=== PATIENT | female | born 1945 | race African-American/Black ===

== ENCOUNTER 2019-02-26 02:24 | Emergency (ER) | payer MEDICARE, SELFPAY ==
[2019-02-26 02:24] VITALS: BP 195/94; PULSE 92; RESP 16; TEMP 36.9; O2SAT 96; BMI 32.9
--- NOTE | 2019-02-26 02:34 | ED.VIS.GI ---
History of Present Illness Chief Complaint: Nausea/Vomiting/Diarrhea Narrative: She stated her last 72 hours she had nausea vomiting and diarrhea. Her stools have started to harden up today. She had multiple episodes of emesis in this time period. She had 3 episodes of emesis today and 3 or 4 yesterday and multiple on Monday. No home treatment. She is able to fluids. This all started after breakfast out at a restaurant. She is unsure if she got food poisoning. She is never had this before. She has diffuse abdominal cramping. Worse on the right side. Her gallbladder has been removed remotely. No fevers or chills. No back pain. No urinary symptoms. Current severity is moderate. - Past Medical History (1) Left leg numbness Status: Acute (2) Hypertension Status: Chronic (3) Hypothyroidism Status: Chronic Past Medical History - Allergies and Home Meds Allergies/Adverse Reactions: Allergies lisinopril Allergy (Verified 02/26/19 02:26) Angioedema Penicillins Allergy (Verified 02/26/19 02:26) Anaphylaxis Primary Care Physician: Elise Birch MD [Primary Care Provider] - Prior records reviewed: Yes Surgical History: - - Partial hysterectomy, thyroidectomy, cholecystectomy Lives: With Family Smoking Status: Current every day smoker Alcohol: None Drugs: None - Family History Paternal Family History: Reports: - - father when she was young Maternal Family History: Reports: - - mother still living at age 90 Review of Systems General: Denies: Chills, Fever, Sweats Eyes: Denies: Visual changes - bilaterally, Diplopia ENT: Denies: Rhinorrhea, Sore throat Cardiovascular: Denies: Chest pain, Palpitations Respiratory: Reports: -. Denies: Dyspnea, Cough, Dyspnea on exertion Gastrointestinal: Reports: Abdominal pain, Nausea, Vomiting, Diarrhea. Denies: Melena, Hematochezia Genitourinary: Denies: Dysuria, Hematuria, Frequency Musculoskeletal: Denies: Back pain, Extremity Pain Skin: Denies: Rash, Wounds Neurological: Denies: Headache, Weakness, Numbness Physical Exam Vital Signs/Narrative: Vital Signs Temp Pulse Resp BP Pulse Ox 02/26/19 02:24 98.5 F 92 16 195/94 H 96 General: Well nourished, Well developed, No Acute Distress Head: Normocephalic, Atraumatic Eyes: Perrl, EOMI ENT: Moist mucous membranes, No rhinorrhea Neck: Supple, Nontender Cardiovascular: Regular rate, Regular rhythm, No murmurs Respiratory: No distress, CTA bilaterally, Chest nontender Abdomen: Soft, Nondistended, Normal bowel sounds, Tender - Mild diffuse tenderness Back: Nontender, Normal Inspection Extremities: Nontender, No edema Skin: Normal color, No rash Neurological: Alert, Oriented x3, Cranial nerves II-XII grossly intact, Normal Strength, Normal Sensation Psychological: Normal affect, Normal Mood Diagnostic/Tx/Re-eval Laboratory Results 02/26/19 02/26/19 02:55 02:55 WBC 5.3 RBC 5.22 Hgb 16.3 H Hct 48.1 H MCV 92.1 MCH 31.2 MCHC 33.9 RDW 13.2 RDW Differential 44.4 H Plt Count 255 MPV 9.3 Immature Gran % (Auto) 0.400 Neut % (Auto) 58.5 Lymph % (Auto) 23.5 [place] % (Auto) 15.9 H Eos % (Auto) 1.5 Baso % (Auto) 0.2 Absolute Neuts (auto) 3.1 Absolute Lymphs (auto) 1.25 Total Counted Not Reportable Sodium 140 Potassium 3.4 L Chloride 106 Carbon Dioxide 27.0 Anion Gap 7 BUN 8 Creatinine 0.65 Estim Creat Clear Calc 53.14 Est GFR (MDRD) Af Amer 116 Est GFR (MDRD) Non-Af 95 BUN/Creatinine Ratio 12.3 Glucose 129 H Calcium 8.3 L - Medical Decision Making Given IV fluids Zofran and morphine. Lab work obtained lab work shows a CBC that is normal except for slightly elevated hemoglobin likely secondary to dehydration. No elevated white blood cell count. Potassium is just slightly low. Reevaluation patient is feeling better. Given 1 more dose of pain medicine for some mildly persistent pain. She will be given Zofran and a short course of pain medicine for home. At this time I think she likely has gastroenteritis versus food poisoning. I do not think she needs a CT of her abdomen. I think this is more diffuse abdominal cramping secondary to enteritis. Likely viral in nature and will have to run its course and she will return if she worsens. ED Disposition - Plan for ED Patient: Diagnosis: Nausea vomiting and diarrhea, Abdominal cramping Instructions: ED Gastroenteritis Viral Prescriptions: Hydrocodone Bitart/Apap 5-325 [[place] 5MG-325MG] 1 tab PO Q6H PRN PRN 3 Days #8 tab PRN Reason: Pain Ondansetron [Zofran Odt] 4 mg PO Q8H PRN PRN #10 tab PRN Reason: Nausea Referrals: Elise Birch MD [Primary Care Provider] -
[2019-02-26] MEDS: 0.9% Normal Saline 1,000 ML 1000 ML IV (02:48)
[2019-02-26] MEDS: Morphine 2 MG/ML Syringe IV (02:48)
[2019-02-26] MEDS: Ondansetron 4 MG/2 ML Vial IV ×2 (02:48→04:21)
[2019-02-26 02:50] VITALS: BP 186/93; PULSE 91; RESP 18; O2SAT 93
[2019-02-26 03:03] LABS: Absolute Lymphocyte Count 1.25 X10^3/ul (0.83-4.51); Absolute Neutrophil Count 3.1 X10^3/uL (2.0-7.7); Basophil# 0.01 X10^3/uL; Basophil% 0.2 % (0-1); Eosinophil# 0.08 X10^3/uL; Eosinophils% 1.5 % (0-5); Hematocrit 48.1 % (37-47); Hemoglobin 16.3 g/dl (12.0-15.0); Lymphocyte # 1.25 X10^3/ul (4.0); Lymphocyte % 23.5 % (19-41); Mean Corp Hgb Conc 33.9 g/gl (32-36); Mean Corpuscular Hgb 31.2 pg (27.0-32.0); Mean Corpuscular Volume 92.1 fL (81-99); Mean Platelet Vol. 9.3 fl (6.2-12.0); Monocyte# 0.85 X10^3/uL; Monocyte% 15.9 % (0-10); Neutrophil # 3.12 X10^3/uL (2.7-7.7); Neutrophil % 58.5 % (47-70); POSITIVE COUNT NO; POSITIVE DIFFERENTIAL NO; POSITIVE MORPHOLOGY NO; Platelet Count 255 K/mm3 (150-450); RBC Distribution Width CV 13.2 % (11.6-14.6); RBC Distribution Width SD 44.4 fl (35.1-43.9); Red Blood Count 5.22 M/mm3 (4.2-5.4); White Blood Count 5.3 K/mm3 (4.4-11.0)
[2019-02-26 03:11] LABS: Anion Gap 7 (5-15); BUN 8 mg/dL (7-18); BUN/Creat Ratio 12.3 RATIO (10-20); Calcium,Total 8.3 mg/dL (8.5-10.1); Chloride 106 mmol/L (98-107); Creatinine, Serum 0.65 mg/dL (0.55-1.02); EST Glomerular Filtration Rate 95 mL/min (>60); Est Glom Filt Rate - Afr Amer 116 mL/min (>60); Estimated Creatinine Clearance 53.14 ml/min; Glucose 129 mg/dL (74-106); Potassium 3.4 mmol/L (3.5-5.1); Sodium Level 140 mmol/L (136-145)
[2019-02-26] MEDS: Morphine 4 MG/ML Syringe IV (04:21)
[2019-02-26 04:26] VITALS: BP 156/71; PULSE 92; RESP 18; O2SAT 93
--- NOTE | 2019-02-26 05:05 | ED.RN ---
PATIENT WAS FEELING BETTER AFTER THE ZOFRAN PRIOR TO DISCHARGE.
== END 2019-02-26 05:05 | disposition home or self-care (01) ==
PROVIDERS: Emergency Provider Emergency Medicine; Family Provider Internal Medicine; PCP Internal Medicine
DX: R11.2 Nausea with vomiting, unspecified (principal); R19.7 Diarrhea, unspecified; R10.9 Unspecified abdominal pain; I10 Essential (primary) hypertension; E03.9 Hypothyroidism, unspecified; Z90.49 Acquired absence of other specified parts of digestive tract
CPT/HCPCS: 80048; 85025; 96361; 96374; 96375; 96376; 99283; J7030; A4216; J2405

== ENCOUNTER 2024-01-22 16:31 | Observation (INO) | payer MEDICARE, SELFPAY ==
[2024-01-22] VITALS (7 sets, daily range): BP systolic 146–188; BP diastolic 55–99; PULSE 67–108; RESP 18–26; TEMP 36.2–37.1; O2SAT 93–99; BMI 33.3; BMI 33.6
--- NOTE | 2024-01-22 17:41 | EKG12_ITS ---
Test Reason : Blood Pressure : / mmHG Vent. Rate : 073 BPM Atrial Rate : 073 BPM P-R Int : 198 ms QRS Dur : 096 ms QT Int : 406 ms P-R-T Axes : 064 -05 095 degrees QTc Int : 447 ms Normal sinus rhythm with sinus arrhythmia Voltage criteria for left ventricular hypertrophy ( R in aVL , Sokolow-Dodd , Fercho product ) Nonspecific T wave abnormality Abnormal ECG Confirmed by YOLA AKBAR, FAITH ([id number]), assignment desk editor NONA TREVINO ([id number]) on 01/29/2024 9:54:51 AM Referred By: Confirmed By:JOSE ACEVES MD
--- NOTE | 2024-01-22 17:49 | EDS_ITS ---
HPI History of Present Illness Chief Complaint: Shortness of Breath Narrative Narrative: 78-year-old female with PMH of HTN, hypothyroidism states she moved about 6 oxygen tanks to the living room for pickup and then developed chest tightness, shortness of breath, and heart palpitations. She had to sit down and rest and called her daughter. This was around 3:50 PM. She does not wear oxygen, the tanks are for her son. She states her symptoms have now resolved. She has no cardiac history. She smokes about 8 cigarettes a day. No history of asthma or COPD. No recent exertional chest pain or dyspnea. [facility] Medical History Hypertension Home Medications albuterol sulfate 90 mcg/actuation aerosol inhaler (Ventolin HFA) 1 puff inhalation PRN PRN Sob &/Or Wheezing 06/22/17 [History Last Taken Unknown] amlodipine 10 mg tablet (Norvasc) 10 mg PO DAILY 06/22/17 [History Last Taken 06/21/17] loratadine 10 mg tablet (Allergy Relief (loratadine)) 10 mg PO DAILY 06/22/17 [History Last Taken 06/21/17] meclizine 12.5 mg tablet 12.5 mg PO Q6H PRN antivert 06/22/17 [History Last Taken Unknown] metoprolol tartrate 25 mg tablet 25 mg PO BID 06/22/17 [History Last Taken 06/21/17] tramadol 50 mg tablet 50 mg PO Q6H 01/22/24 [History Last Taken Unknown] triamterene 37.5 mg-hydrochlorothiazide 25 mg capsule 1 cap PO DAILY 01/22/24 [History Last Taken Unknown] Allergy/AdvReac Type Severity Reaction Status Date / Time lisinopril Allergy Angioedema Verified 01/22/24 16:31 Penicillins Allergy Anaphylaxis Verified 01/22/24 16:31 Surgical History History of cholecystectomy History of partial hysterectomy Social History Smoking Status: Current every day smoker tobacco type: cigarettes ROS ROS ED ROS Narrative Constitutional: Negative for fever, chills, malaise. CVS: Positive for palpitations, chest pain. Negative for syncope. Respiratory: Positive for shortness of breath, cough. GI: Negative for abdominal pain, nausea, vomiting. EXAM Physical Exam Narrative Exam Narrative: CONST: Patient sitting in no acute distress. EYES: Normal inspection. NECK: Normal inspection. RESP: No respiratory distress, CTAB. CVS: Regular rate and rhythm, no murmur, no gallop. ABD: Soft and nontender, no guarding or rebound, nondistended. SKIN: Color normal, no rash, warm, dry, intact. EXTREMITIES: Normal appearance, no pedal edema. NEURO: Oriented x4. PSYCH: Normal affect. Const Vital Signs: 01/22/24 16:32 01/22/24 18:22 01/22/24 18:23 Temperature 97.9 F Temperature Source Temporal Pulse Rate 108 H Respiratory Rate 22 H Blood Pressure 178/78 H Blood Pressure Mean 111 Pulse Ox 95 Oxygen Delivery Method Room Air Room Air Room Air 01/22/24 18:23 01/22/24 18:23 01/22/24 20:00 Temperature Temperature Source Pulse Rate 68 67 Respiratory Rate 20 H 20 H 26 H Blood Pressure 146/71 H 180/93 H Blood Pressure Mean 96 122 Pulse Ox 93 93 95 Oxygen Delivery Method Room Air Room Air Room Air 01/22/24 20:29 Temperature 97.2 F L Temperature Source Pulse Rate 73 Respiratory Rate 24 H Blood Pressure 188/99 H Blood Pressure Mean 128 Pulse Ox 99 Oxygen Delivery Method MDM MDM MDM Narrative Medical decision making narrative: History gathered from: Patient and daughter Differential: Angina, ACS Patient had an episode of exertional chest pain, dyspnea, and palpitations. She appears well and nontoxic. Initially vital signs were slightly elevated with BP of 178/78, HR 108, otherwise normal. This did improve after resting. Her exam is unremarkable. EKG is normal sinus rhythm with ST depressions in lead II and III. This is new from last EKG on file in May 2017. CBC and BMP are unremarkable. Troponin is 28 and repeat is 39. CXR shows no acute process. Patient states she had 1 recurrence of the pain and palpitations around 1817 when the nurse administered her aspirin. The caustic room operator was reviewed from that time and is normal. She does have persistent ST depressions in inferior leads and due to her age and risk factors I feel she needs admitted for cardiac workup. Case will be discussed with the hospitalist. Lab Data Attestation: I reviewed the patient's lab results. Labs: Laboratory Results - last 24 hr 01/22/24 01/22/24 17:40 19:44 WBC 7.4 RBC 4.59 Hgb 14.1 Hct 43.4 MCV 94.6 MCH 30.7 MCHC 32.5 RDW Std Deviation 43.6 RDW Coeff of Migdalia 12.6 Plt Count 327 MPV 8.8 Immature Gran % (Auto) 0.300 Neut % (Auto) 55.6 Lymph % (Auto) 28.5 [place] % (Auto) 10.8 H Eos % (Auto) 4.0 Baso % (Auto) 0.8 Absolute Neuts (auto) 4.1 Absolute Lymphs (auto) 2.12 Nucleated RBC % 0 Sodium 142 Potassium 3.6 Chloride 111 H Carbon Dioxide 30.0 Anion Gap 1 L BUN 15 Creatinine 0.83 Est GFR (MDRD) Af Amer 85 Est GFR (MDRD) Non-Af 71 BUN/Creatinine Ratio 18.0 Glucose 113 H Calcium 9.5 Troponin I High Sens 28 39 Radiography Diagnostic Testing: Clinical Impression(s) from Imaging Studies Chest X-Ray 01/22/24 18:12 IMPRESSION: Interstitial prominence. Electronically Signed: Wally Larkin DO at 19:40 EST Reading Location ID and State: [facility] / [place] Tel [phone], Service support , ED attending interpretation of 1-view chest x-ray shows normal heart size, no acute infiltrate, edema, or effusion. EKG Initial EKG: Attestation: I personally reviewed and interpreted this EKG as follows: Interpretation: Sinus Rhythm and No Acute Injury Pattern Comments: Normal sinus rhythm with sinus arrhythmia at [address] depressions in inferior leads, new from prior EKG in 2017 No STEMI Discharge Plan Triage Chief Complaint: Shortness of Breath ED Midlevel Provider: Marija Mena ED Provider: Courtney Sierra Dx/Rx/DC Orders Clinical Impression: Abnormal EKG, Chest pain, exertional Prescriptions: No Action meclizine 12.5 MG tablet 12.5 mg PO Q6H PRN (Reason: antivert) Patient Comments: antivert amlodipine [Norvasc] 10 MG tablet 10 mg PO DAILY Patient Comments: blood pressure metoprolol tartrate 25 MG tablet 25 mg PO BID Patient Comments: take two in the morning and one at night loratadine [Allergy Relief (loratadine)] 10 MG tablet 10 mg PO DAILY Patient Comments: allergies albuterol sulfate [Ventolin HFA] 1 INHALER inhaler 1 puff inhalation PRN PRN (Reason: Sob &/Or Wheezing) Patient Comments: inhaler triamterene-hydrochlorothiazid 37.5-25 mg capsule 1 cap PO DAILY Patient Comments: Take 1-2 capsules by mouth once daily. As directed tramadol 50 mg tablet 50 mg PO Q6H Patient Comments: Take 1 tablet by mouth every 6 hours as needed for pain Primary Care Provider: Elise Birch Referrals: Elise Birch MD [Primary Care Provider] -
[2024-01-22 17:55] LABS: Absolute Lymphocyte Count 2.12 X10^3/uL (0.83-4.51); Absolute Neutrophil Count 4.1 X10^3/uL (2.0-7.7); Basophil# 0.06 X10^3/uL; Basophil% 0.8 % (0-1); Hematocrit 43.4 % (37-47); Hemoglobin 14.1 g/dL (12.0-15.0); Lymphocyte # 2.12 X10^3/ul (0.83-4.51); Lymphocyte % 28.5 % (19-41); Mean Corp Hgb Conc 32.5 g/dL (32-36); Mean Corpuscular Hgb 30.7 pg (27.0-32.0); Mean Corpuscular Volume 94.6 fL (81-99); Mean Platelet Vol. 8.8 fl (6.2-12.0); Monocyte% 10.8 % (0-10); NRBC Flagged by Analyzer 0 % (0-5); Neutrophil # 4.13 X10^3/uL (2.7-7.7); Neutrophil % 55.6 % (47-70); Platelet Count 327 K/mm3 (150-450); RBC Distribution Width CV 12.6 % (11.6-14.6); RBC Distribution Width SD 43.6 fl (35.1-43.9); Red Blood Count 4.59 M/mm3 (4.2-5.4); White Blood Count 7.4 K/mm3 (4.4-11.0)
--- NOTE | 2024-01-22 18:12 | RAD_ITS ---
INDICATION: dyspnea EXAMINATION/TECHNIQUE: X-RAY - XR Chest 1 View COMPARISON: FINDINGS: LINES/DEVICES: None. LUNGS: No consolidation, edema or effusion. Interstitial prominence. No pneumothorax. MEDIASTINUM AND CARDIOVASCULAR STRUCTURES: Cardiac silhouette not enlarged. Central airways and mediastinal contour are unremarkable. BONES AND SOFT TISSUES: Degenerative vertebral changes. RAD/Chest 1 View (Portable) IMPRESSION: Interstitial prominence. Electronically Signed: Wally Larkin DO at 19:40 EST ,
[2024-01-22 18:14] LABS: Anion Gap 1 (5-15); BUN 15 mg/dL (7-18); Calcium,Total 9.5 mg/dL (8.5-10.1); Chloride 111 mmol/L (98-107); Creatinine, Serum 0.83 mg/dL (0.55-1.02); EST Glomerular Filtration Rate 71 mL/min (>60); Est Glom Filt Rate - Afr Amer 85 mL/min (>60); Glucose 113 mg/dL (74-106); Potassium 3.6 mmol/L (3.5-5.1); Sodium Level 142 mmol/L (136-145); Troponin-I HS 28 pg/mL (3.0-54.0)
[2024-01-22] MEDS: Aspirin 325 MG Tablet PO (18:18)
[2024-01-22 20:07] LABS: Troponin-I HS 39 pg/mL (3.0-54.0)
--- NOTE | 2024-01-22 20:35 | HP.PCM.HOS_ITS ---
[facility] - General General Date of Admission: 01/22/24 Date of Service: 01/22/24 Chief Complaint: Chest Tightness, Palpitations and SOB. HPI Narrative JIMBO RODRIGUEZ, is a 78 F with a past medical history of essential hypertension, history of hypothyroidism; status post partial thyroidectomy, ongoing tobacco abuse, history of vertigo; on prn Antivert, obesity; with BMI of 33.3 this admission and OA; on prn Tramadol who presents to [facility] ER complaining of chest tightness, palpitations and SOB. Ms. Rodriguez reports her symptoms began approximately 3:50 PM earlier today after she moved several oxygen tanks (used by her son) to get them ready for chicken picker. She then developed a sensation of tightness in her chest with a feeling that her hear was pounding so she sat down and called her daughter. Her symptoms then resolved and she denies a history of known CAD, asthma, COPD or similar previous episodes but she does admit that her chest pain is reproducible with pressure over precordial area. In the ER she was noted to have two normal troponins and a nonspecific EKG with uncontrolled hypertension of 178/78 mm Hg present on admission and then the ER provider sought admission to CDU under observation status for a stay that is expected to be less than 48 hours. [facility] Medical History Hypertension Hypothyroidism Home Medications albuterol sulfate 90 mcg/actuation aerosol inhaler (Ventolin HFA) 1 puff inhalation PRN PRN Sob &/Or Wheezing 06/22/17 [History Last Taken Unknown] amlodipine 10 mg tablet (Norvasc) 10 mg PO DAILY 06/22/17 [History Last Taken 06/21/17] loratadine 10 mg tablet (Allergy Relief (loratadine)) 10 mg PO DAILY 06/22/17 [History Last Taken 06/21/17] meclizine 12.5 mg tablet 12.5 mg PO Q6H PRN antivert 06/22/17 [History Last Harris en Unknown] metoprolol tartrate 25 mg tablet 25 mg PO BID 06/22/17 [History Last Taken 06/21/17] tramadol 50 mg tablet 50 mg PO Q6H 01/22/24 [History Last Taken Unknown] triamterene 37.5 mg-hydrochlorothiazide 25 mg capsule 1 cap PO DAILY 01/22/24 [History Last Taken Unknown] Allergy/AdvReac Type Severity Reaction Status Date / Time lisinopril Allergy Angioedema Verified 01/22/24 16:31 Penicillins Allergy Anaphylaxis Verified 01/22/24 16:31 Surgical History History of cholecystectomy History of partial hysterectomy Social History Smoking Status: Current every day smoker tobacco type: cigarettes ROS ROS Narrative Review of systems: General: Patient denies fevers or chills. HENT: Denies headache, denies stuffy nose, denies sore throat EYES: Denies changes in vision or discharge from eyes. Resp: Patient admits to shortness of breath and nonproductive cough. Cardiac: Patient admits to chest tightness and palpitations but denies syncope or eugenio chest pain. GI: Denies abdominal pain, denies changes in bowel, had some nausea : Denies changes in urination Extremity: Denies swelling Musculoskeletal: Patient admits chest pain is reproducible with pressure over precordial area but she denies arthralgias or myalgias. Neuro: Denies any numbness/tingling Heme: Denies any bleeding or bruising Skin: Denies rashes Psychiatric: No complaints voiced related to uncontrolled anxiety or depression. Endocrine: No polyuria, polydipsia or polyphagia. The rest of the 14 point ROS was negative except for positives in HPI. Vital Signs Vital Signs Vital Signs: 01/22/24 16:32 01/22/24 18:22 01/22/24 18:23 Temperature 97.9 F Temperature Source Temporal Pulse Rate 108 H Respiratory Rate 22 H Blood Pressure 178/78 H Blood Pressure Mean 111 Pulse Ox 95 Oxygen Delivery Method Room Air Room Air Room Air 01/22/24 18:23 01/22/24 18:23 01/22/24 20:00 Temperature Temperature Source Pulse Rate 68 67 Respiratory Rate 20 H 20 H 26 H Blood Pressure 146/71 H 180/93 H Blood Pressure Mean 96 122 Pulse Ox 93 93 95 Oxygen Delivery Method Room Air Room Air Room Air 01/22/24 20:29 Temperature 97.2 F L Temperature Source Pulse Rate 73 Respiratory Rate 24 H Blood Pressure 188/99 H Blood Pressure Mean 128 Pulse Ox 99 Oxygen Delivery Method Weight Weight: 231 lb 14.821 oz Body Mass Index (BMI) 33.3 Physical Exam Const alert, oriented x3 and no apparent distress General Appearance: cooperative HEENT normocephalic, head/scalp atraumatic, hearing grossly normal bilaterally and moist oral mucous membranes Eyes PERRL and EOMs intact bilaterally Neck no lymphadenopathy and supple Resp normal respiratory effort, no retractions, no use of accessory muscles and clear to auscultation bilaterally Cardio regular rate and regular rhythm GI normal to inspection, nondistended, normoactive bowel sounds, soft to palpation, non-tender and non-distended Extremity normal to inspection, full ROM and no clubbing, cyanosis or edema Skin Skin Narrative: Patient has no evidence of abscess or rash. Neuro oriented x3, CN's II-XII intact bilaterally, moves all extremities and no focal motor deficits Sensorium / Orientation: awake, alert, oriented to person, oriented to place and oriented to time Speech: speech normal Motor Exam: strength 5/5 throughout Psych affect normal Results Medical Records Data Attestation: I reviewed the patient's medical records Lab / Micro Data Attestation: I reviewed the patient's lab results. 01/22/24 17:40 01/22/24 17:40 Labs: Laboratory Results - last 24 hr 01/22/24 17:40: WBC 7.4, RBC 4.59, Hgb 14.1, Hct 43.4, MCV 94.6, MCH 30.7, MCHC 32.5, RDW Std Deviation 43.6, RDW Coeff of Migdalia 12.6, Plt Count 327, MPV 8.8, Immature Gran % (Auto) 0.300, Neut % (Auto) 55.6, Lymph % (Auto) 28.5, [place] % (Auto) 10.8 H, Eos % (Auto) 4.0, Baso % (Auto) 0.8, Absolute Neuts (auto) 4.1, Absolute Lymphs (auto) 2.12, Nucleated RBC % 0, Sodium 142, Potassium 3.6, Chloride 111 H, Carbon Dioxide 30.0, Anion Gap 1 L, BUN 15, Creatinine 0.83, Est GFR (MDRD) Af Amer 85, Est GFR (MDRD) Non-Af 71, BUN/Creatinine Ratio 18.0, Glucose 113 H, Calcium 9.5, Troponin I High Sens 28 01/22/24 19:44: Troponin I High Sens 39 Imaging Radiology Impression Chest X-Ray 01/22/24 18:12 IMPRESSION: Interstitial prominence. Electronically Signed: Wally DO Trae at 19:40 EST Reading Location ID and State: [facility] / [place] Tel [phone], Service support , Assessment & Plan Assessment/Plan (1) Chest pain, exertional: (2) Abnormal EKG: (3) Uncontrolled hypertension: PLAN: Plan 1. Chest tightness and palpitations worrisome for possible anginal equivalent brought on by exertion - Admit to CDU under observation status. Serialize troponin. Check echocardiogram to evaluate left ventricular ejection fraction. Check Lexiscan nuclear stress test in the a.m. to evaluate for possible underlying ischemia. Continue aspirin and as needed nitroglycerin. 2. Uncontrolled hypertension of 178/88 mmHg present on admission complicating #1 - Continue home medications as previous plus give as needed IV hydralazine for systolic blood pressure greater than or equal to 180 mmHg. 3. Ongoing Tobacco Abuse compounding #1 & #2 - Tobacco Cessation was strongly encouraged. 4. History of hypothyroidism - Check TSH this admission. 5. History of vertigo - Continue prn Antivert as previous. 6. Obesity; with BMI of 33.3 this admission - Weight loss will be recommended. 7. OA - Stable. Continue Tylenol for [id number] (level 1-5/10) pain or fever. Give Tramadol for severe (level 6-10/10) pain. 8. DVT prophylaxis - Lovenox 40 mg sq daily. Total time: Approximately 45 minutes. Charges/Coding Visit Charges OBSV E&M: 53465 Observ/hosp same date L1
[2024-01-22] MEDS: Metoprolol Tartrate 25 MG Tablet PO (21:08)
--- NOTE | 2024-01-22 22:00 | ECHOD_ITS ---
Reason For Study: Chest pain Procedure This was a 2D Doppler, Color Flow transthoracic echocardiogram. Exam performed in department. Left Ventricle Normal LV size. The estimated ejection fraction is 70 %. Unable to assess diastolic dysfunction. No regional wall motion abnormalities noted. Right Ventricle Normal RV size. Normal systolic function. Atria The left and right atria are normal. No doppler evidence for ASD. Mitral Valve There is moderate mitral annular calcification. There is no mitral valve stenosis. No mitral valve insufficiency. Tricuspid Valve There is no tricuspid stenosis. Unable to estimate RV systolic pressure due to inadequate jet, pulmonary artery pressure probably normal. Aortic Valve Trisinus/trileaflet aortic valve. There is no aortic stenosis. No aortic valve insufficiency. Pulmonic Valve There is no pulmonic valvular stenosis. No pulmonic valve insufficiency. Great Vessels Normal aortic root. Pericardium/Pleural No pericardial effusion. MMode/2D Measurements & Calculations LVIDd: 3.8 cm IVSd: 1.4 cm Ao root diam: 3.7 cm LVIDs: 2.1 cm LVPWd: 1.5 cm RVDd: 2.8 cm FS: 44.5 % LAV(MOD-bp): 65.8 ml LVAd ap4: 28.2 cm2 LVAd ap2: 19.7 cm2 LAV(MOD-bp) Indexed: 29.7 ml/m2 LVLd ap4: 9.0 cm LVLd ap2: 8.0 cm LAV(MOD-sp2): 56.5 ml EDV(MOD-sp4): 71.7 ml EDV(MOD-sp2): 40.5 ml LAV(MOD-sp4): 76.4 ml EDV(sp4-el): 75.5 ml EDV(sp2-el): 41.1 ml LVAs ap4: 13.9 cm2 LVAs ap2: 10.3 cm2 LVLs ap4: 7.2 cm LVLs ap2: 7.1 cm ESV(MOD-sp4): 23.5 ml ESV(MOD-sp2): 14.0 ml ESV(sp4-el): 22.8 ml ESV(sp2-el): 12.8 ml EF(MOD-sp4): 67.2 % EF(MOD-sp2): 65.5 % EF(sp4-el): 69.8 % SV(MOD-sp4): 48.2 ml SV(MOD-sp2): 26.5 ml SV(sp4-el): 52.6 ml LA dimension(2D): 3.9 cm LA A4 area: 24.7 cm2 RA A4 area: 14.2 cm2 Time Measurements MV dec time: 0.29 sec Doppler Measurements & Calculations MV E max maciej: 94.2 cm/sec Lat Peak E' Maciej: 10.5 cm/sec Med Peak E' Maciej: 5.4 cm/sec MV A max maciej: 127.2 cm/sec E/E' lat: 9.0 E/E' med: 17.5 MV E/A: 0.74 MV V2 max: 133.1 cm/sec MV P1/2t max maciej: 97.2 cm/sec Ao V2 max: 144.0 cm/sec MV max P.1 mmHg MV P1/2t: 90.9 msec Ao max P.3 mmHg MV V2 mean: 73.6 cm/sec MV dec slope: 313.3 cm/sec2 MV mean P.5 mmHg MV V2 VTI: 36.1 cm MVA(P1/2t): 2.4 cm2 LV V1 max: 116.4 cm/sec PA V2 max: 98.5 cm/sec TR max maciej: 273.5 cm/sec LV V1 max P.4 mmHg TR max P.9 mmHg ECHO/Echo Complete Interpretation Summary The estimated ejection fraction is 70 %. Unable to assess diastolic dysfunction. Ordering Physician: Sebastian Drummond Referring Physician: Elise Birch M.D. Performed By: Komal Carnes, [place]
--- NOTE | 2024-01-22 23:56 | EKG12_ITS ---
Test Reason : AM EKG Blood Pressure : / mmHG Vent. Rate : 067 BPM Atrial Rate : 067 BPM P-R Int : 192 ms QRS Dur : 092 ms QT Int : 434 ms P-R-T Axes : 060 -02 124 degrees QTc Int : 458 ms Normal sinus rhythm Moderate voltage criteria for LVH, may be normal variant ( R in aVL , [place] product ) T wave abnormality, consider lateral ischemia Abnormal ECG When compared with ECG of 22-JAN-2024 22:31, MANUAL COMPARISON REQUIRED, DATA IS UNCONFIRMED Confirmed by YOLA AKBAR, FAITH ([id number]), assignment desk editor ROSARIO PEÑA ([id number]) on 01/29/2024 2:09:13 PM Referred By: OLIVERA Confirmed By:JOSE ACEVES MD
[2024-01-23 00:14] LABS: Troponin-I HS 34 pg/mL (3.0-54.0)
--- OUTSIDE RECORDS SUMMARY | 2024-01-23 00:29 | XMS RPT_ITS | CCD ---
Author Name Unknown Address [address] [place] [address] Organization [facility] Care Team Providers [employer] Weaver Name Role Phone Queta AKBAR, Hailey Hart Primary Care Provider LIEN JIANG Attending Unavailable TALAMPAS, HAILEY D Primary Care Unavailable IDA EDUARDO Attending Unavailable TALAMPAS, HAILEY D Primary Care Unavailable LIEN JIANG Attending Unavailable TALAMPAS, HAILEY D Primary Care Unavailable TALAMPAS, HAILEY D Primary Care Unavailable TALAMPAS, HAILEY D Referring Unavailable TALAMPAS, HAILEY D Primary Care Unavailable TALAMPAS, HAILEY D Referring Unavailable TALAMPAS, HAILEY D Primary Care Unavailable TALAMPAS, HAILEY D Attending Unavailable LIEN JIANG Referring Unavailable TALAMPAS, HAILEY D Primary Care Unavailable Allergies Allergy Classification Reported Allergen(s) Allergy Type Date of Onset Reaction(s) Facility (14 sources) Etodolac; Translations: [ETODOLAC] Drug Allergy 08-19-2009 GI Upset [facility] Work Phone: (14 sources) fluticasone; Translations: [FLUTICASONE PROPIONATE] Drug Allergy 12-26-2014 Anaphylaxis, Angioedema [facility] (14 sources) Lisinopril; Translations: [LISINOPRIL] Drug Allergy 12-16-2014 Swelling [facility] Work Phone: (3 sources) Penicillins; Translations: [PENICILLINS] Drug Allergy 08-02-2005 Swelling [facility] Work Phone: (11 sources) Penicillins Drug Allergy 08-02-2005 Swelling [facility] Work Phone: Medications Current Medications Medication Drug Class(es) Dates Sig (Normalized) Sig (Original) nitrofurantoin, macrocrystals 25 mg / nitrofurantoin, monohydrate 75 mg oral capsule (2 sources) Nitrofuran Antibacterial Start: 10-31-2023 End: 11-07-2023 take 1 capsule by mouth twice daily at mealtime nitrofurantoin monohydrate and macrocrystal (MACROBID) 100 mg capsule Indications: UTI symptoms Take 1 capsule by mouth two times a day with meals for 7 days. 14 capsule 0 10/31/2023 11/07/2023 Active Completed/Discontinued Medications Medication Drug Class(es) Dates Sig (Normalized) Sig (Original) acetaminophen 500 mg oral tablet (13 sources) Start: 08-19-2009 acetaminophen(TYLE NOL EXTRA STRENGTH 500 MG TAB) Take two(2) tablets every six(6) hours as needed for pain. 0 0 08/19/2009 Active Problems Active Problems Problem Classification Problem Date Documented Date Episodic/Chronic Chronic obstructive pulmonary disease and bronchiectasis (1 source) Bronchitis, not specified as acute or chronic; Translations: [Sinobronchitis] Onset: 11-28-2023 Episodic Disorders of lipid metabolism (2 sources) Raised low density lipoprotein cholesterol; Translations: [Pure hypercholesterolemia, unspecified] Onset: 12-02-2023 12-24-2023 Chronic Essential hypertension (18 sources) Essential hypertension; Translations: [Essential (primary) hypertension] Onset: 12-06-2005 09-04-2017 Chronic Genitourinary symptoms and ill-defined conditions (6 sources) Urinary symptoms ; Translations: [Unspecified symptoms and signs involving the genitourinary system] Onset: 09-14-2023 09-14-2023 Episodic Immunizations and screening for infectious disease (2 sources) Needs influenza immunization; Translations: [Encounter for immunization] 09-04-2023 Episodic Other and unspecified benign neoplasm (3 sources) History of polyp of colon; Translations: [Personal history of colonic polyps] Episodic Other and unspecified benign neoplasm (1 source) Adenomatous polyp of colon ; Translations: [Benign neoplasm of sigmoid colon] Episodic Other lower respiratory disease (1 source) Cough; Translations: [Acute cough] Episodic Other lower respiratory disease (1 source) Dyspnea on exertion; Translations: [Shortness of breath] Episodic Other nutritional; endocrine; and metabolic disorders (13 sources) Obesity; Translations: [Obesity, unspecified] 02-02-2014 Chronic Other nutritional; endocrine; and metabolic disorders (13 sources) Obese class II; Translations: [Obesity, unspecified] Onset: 08-04-2019 08-04-2019 Chronic Other nutritional; endocrine; and metabolic disorders (1 source) Obesity caused by energy imbalance; Translations: [Other obesity due to excess calories] 12-24-2023 Chronic Other screening for suspected conditions (not mental disorders or infectious disease) (18 sources) Patient encounter status; Translations: [Encounter for screening for malignant neoplasm of colon] Onset: 01-04-2010 01-04-2010 Episodic Other upper respiratory disease (16 sources) Allergic rhinitis; Translations: [Allergic rhinitis, unspecified] Onset: 08-19-2009 08-19-2009 Chronic Other upper respiratory disease (1 source) Other allergic rhinitis; Translations: [Non-seasonal allergic rhinitis due to other allergic trigger] Onset: 08-19-2009 Chronic Other upper respiratory infections (4 sources) Chronic sinusitis; Translations: [Chronic sinusitis, unspecified] Onset: 11-28-2023 Chronic Other upper respiratory infections (1 source) Acute upper respiratory infection; Translations: [Acute upper respiratory infection, unspecified] Episodic Residual codes; unclassified (1 source) Family history of breast cancer; Translations: [Family history of malignant neoplasm of breast] 11-28-2023 Episodic Residual codes; unclassified (1 source) Family history of malignant neoplasm of breast; Translations: [Family history of breast cancer] Onset: 11-29-2023 Episodic Spondylosis; intervertebral disc disorders; other back problems (20 sources) Degeneration of intervertebral disc; Translations: [Degeneration of intervertebral disc, site unspecified] Onset: 08-18-2014 12-06-2005 Chronic Thyroid disorders (13 sources) Goiter; Translations: [Nontoxic goiter, unspecified] Onset: 11-30-2015 11-30-2015 Chronic Urinary tract infections (1 source) Acute cystitis; Translations: [Acute cystitis with hematuria] 09-14-2023 Episodic Past or Other Problems Problem Classification Problem Date Documented Da te Episodic/Chronic Acute bronchitis (4 sources) Acute bronchitis; Translations: [Acute bronchitis, unspecified] Onset: 05-16-2023 Episodic Conditions associated with dizziness or vertigo (13 sources) Benign paroxysmal positional vertigo; Translations: [Benign paroxysmal vertigo, unspecified ear] Onset: 09-21-2022 Episodic Diabetes mellitus without complication (16 sources) Impaired fasting glycemia; Translations: [Impaired fasting glucose] Onset: 08-19-2009 08-19-2009 Episodic Other and unspecified benign neoplasm (13 sources) Benign neoplasm of colon; Translations: [Benign neoplasm of colon, unspecified] Onset: 01-04-2010 01-04-2010 Episodic Spondylosis; intervertebral disc disorders; other back problems (13 sources) Backache; Translations: [Dorsalgia, unspecified] Onset: 08-18-2014 08-18-2014 Episodic Results Test Name Value Interpretation Reference Range Facil ity Vital Signs Date Time Vital Sign Value Performing Clinician Izzy green 11-28-2023 16:32-0500 Body temperature 96.8 [degF] Hailey Birch MD Work Phone: [facility] 11-28-2023 16:32-0500 Body weight 106.59 kg Hailey Birch MD Work Phone: [facility] 11-28-2023 16:32-0500 Diastolic blood pressure 78 mm[Hg] Hailey Birch MD Work Phone: [facility] 11-28-2023 16:32-0500 Heart rate 68 /min Hailey Birch MD Work Phone: [facility] 11-28-2023 16:32-0500 Respiratory rate 18 /min Hailey Birch MD Work Phone: [facility] 11-28-2023 16:32-0500 SaO2% (BldA) [Mass fraction] 96 % Hailey Birch MD Work Phone: [facility] 11-28-2023 16:32-0500 Systolic blood pressure 136 mm[Hg] Hailey Birch MD Work Phone: [facility] 09-14-2023 15:07-0400 Body weight 102.97 kg Lien Jiang APRN.CNS Work Phone: [facility] 09-14-2023 15:07-0400 Diastolic blood pressure 75 mm[Hg] Lien Jiang INSTRUMENT MAKER.HAZARDOUS SUBSTANCES SCIENTIST Work Phone: [facility] 09-14-2023 15:07-0400 Heart rate 69 /min Lien Jiang INSTRUMENT MAKER.HAZARDOUS SUBSTANCES SCIENTIST Work Phone: [facility] 09-14-2023 15:07-0400 Respiratory rate 16 /min Lien Jiang INSTRUMENT MAKER.HAZARDOUS SUBSTANCES SCIENTIST Work Phone: [facility] 09-14-2023 15:07-0400 Systolic blood pressure 132 mm[Hg] Lien Jiang INSTRUMENT MAKER.HAZARDOUS SUBSTANCES SCIENTIST Work Phone: [facility] 05-16-2023 12:10-0400 Body weight 106.14 kg Lien Jiang INSTRUMENT MAKER.HAZARDOUS SUBSTANCES SCIENTIST Work Phone: [facility] 05-16-2023 12:10-0400 Diastolic blood pressure 72 mm[Hg] Lien Jiang INSTRUMENT MAKER.HAZARDOUS SUBSTANCES SCIENTIST Work Phone: [facility] 05-16-2023 12:10-0400 Heart rate 64 /min Lien Jiang INSTRUMENT MAKER.HAZARDOUS SUBSTANCES SCIENTIST Work Phone: [facility] 05-16-2023 12:10-0400 Respiratory rate 16 /min Lien Jiang INSTRUMENT MAKER.HAZARDOUS SUBSTANCES SCIENTIST Work Phone: [facility] 05-16-2023 12:10-0400 Systolic blood pressure 132 mm[Hg] Lien Jiang INSTRUMENT MAKER.HAZARDOUS SUBSTANCES SCIENTIST Work Phone: [facility] 12-06-2022 15:42-0500 Diastolic blood pressure 84 mm[Hg] Lien Jiang INSTRUMENT MAKER.HAZARDOUS SUBSTANCES SCIENTIST Work Phone: [facility] 12-06-2022 15:42-0500 Systolic blood pressure 146 mm[Hg] Lien Jiang INSTRUMENT MAKER.HAZARDOUS SUBSTANCES SCIENTIST Work Phone: [facility] 12-06-2022 15:35-0500 Body temperature 98.71 [degF] Lien Jiang INSTRUMENT MAKER.HAZARDOUS SUBSTANCES SCIENTIST Work Phone: [facility] 12-06-2022 15:35-0500 Body weight 102.06 kg Lien Jiang INSTRUMENT MAKER.HAZARDOUS SUBSTANCES SCIENTIST Work Phone: [facility] 12-06-2022 15:35-0500 Heart rate 69 /min Lien Jiang INSTRUMENT MAKER.HAZARDOUS SUBSTANCES SCIENTIST Work Phone: [facility] 12-06-2022 15:35-0500 SaO2% (BldA) [Mass fraction] 96 % Lien Jiang INSTRUMENT MAKER.HAZARDOUS SUBSTANCES SCIENTIST Work Phone: [facility] 10-07-2022 14:47-0500 Body temperature 97.2 [degF] Shantal Gabe PA-C Work Phone: [facility] 10-07-2022 14:47-0500 Body weight 107.41 kg Shantal Oostburg PA-C Work Phone: [facility] 10-07-2022 14:47-0500 Diastolic blood pressure 80 mm[Hg] Shantal Gabe PA-C Work Phone: [facility] 10-07-2022 14:47-0500 Heart rate 86 /min Shantal Gabe PA-C Work Phone: [facility] 10-07-2022 14:47-0500 SaO2% (BldA) [Mass fraction] 99 % Shantal Oostburg PA-C Work Phone: [facility] 10-07-2022 14:47-0500 Systolic blood pressure 148 mm[Hg] Shantal Gabe PA-C Work Phone: [facility] 09-26-2022 13:38-0400 Diastolic blood pressure 65 mm[Hg] Susi Jackson MD Work Phone: [facility] 09-26-2022 13:38-0400 Heart rate 70 /min Susi Jackson MD Work Phone: [facility] 09-26-2022 13:38-0400 Respiratory rate 16 /min Susi Jackson MD Work Phone: [facility] 09-26-2022 13:38-0400 SaO2% (BldA) [Mass fraction] 93 % Susi Jackson MD Work Phone: [facility] 09-26-2022 13:38-0400 Systolic blood pressure 150 mm[Hg] Susi Jackson MD Work Phone: [facility] 09-26-2022 12:20-0400 Body temperature 97.9 [degF] Susi Jackson MD Work Phone: [facility] 08-29-2022 14:58-0400 Body temperature 97.59 [degF] Susi Jackson MD Work Phone: [facility] 08-29-2022 14:58-0400 Body weight 109.5 kg Susi Jackson MD Work Phone: [facility] 08-29-2022 14:58-0400 Diastolic blood pressure 83 mm[Hg] Susi Jackson MD Work Phone: [facility] 08-29-2022 14:58-0400 Heart rate 69 /min Susi Jackson MD Work Phone: [facility] 08-29-2022 14:58-0400 Respiratory rate 22 /min Susi Jackson MD Work Phone: [facility] 08-29-2022 14:58-0400 SaO2% (BldA) [Mass fraction] 100 % Susi Jackson MD Work Phone: [facility] 08-29-2022 14:58-0400 Systolic blood pressure 163 mm[Hg] Susi Jackson MD Work Phone: [facility] Encounters Encounter Date Encounter Type Care Provider Facility Start: 12-02-2023 End: 12-03-2023 ambulatory HAILEY BIRCH Facility:[facility] Start: 11-29-2023 End: 11-29-2023 ambulatory HAILEY BIRCH Facility:[facility] Start: 11-28-2023 End: 11-29-2023 ambulatory HAILEY BIRCH Facility:[facility] Start: 11-28-2023 End: 11-28-2023 Office outpatient visit 25 minutes Hailey Birch MD Work Phone: [facility] Procedures Date Procedure Procedure Detail Performing Clinician Start: 09-14-2023 Urnls dip stick/tabl et rgnt auto w/o microscopy Lien Jiang INSTRUMENT MAKER.HAZARDOUS SUBSTANCES SCIENTIST Work Phone: Start: 09-04-2023 PFIZER-BIONTECH COVI D-19 VACCINE ( SEASON) AGE 12+ YR Ida Eduardo INSTRUMENT MAKER.HEAD OF DESIGN Work Phone: Start: 09-04-2023 INFLUENZA VACCINE, P RSV FREE, AGE 65+ YR, HIGH DOSE, QUADRIVALENT (FLUZONE HIGH-DOSE) Ida Eduardo INSTRUMENT MAKER.HEAD OF DESIGN Work Phone: Start: 09-26-2022 Level iv surg pathol ogy gross&microscopic exam Susi Jackson MD Work Phone: Start: 09-26-2022 Colonoscopy flx dx w /collj spec when pfrmd Susi Jackson MD Work Phone: Start: 09-26-2022 Colonoscopy Shantal power PA-C Work Phone: Start: 04-06-2021 Adult depression scr eening assessment Jocelyne Cannon Start: 08-29-2019 Colonoscopy Jocelyne abreu History of thyroidectomy S/P thyroidectom y Jocelyne Dopa History of thyroidectomy S/P thyroidectom y Hailey Birch MD Work Phone: Plan of Treatment Date Care Activity Detail Author Start: 12-17-2029 Urine microalbumin profile [facility] Start: 09-26-2027 Colonoscopy COLONOSCOPY [facility] Start: 09-26-2027 COLORECTAL CANCER SCREENING COLORECTAL CANCER SCREENING [facility] Start: 09-26-2027 Screening for malign ant neoplasm of colon [facility] Start: 12-02-2026 Diabetes Screening Diabetes Screenin [facility] Start: 03-13-2026 LIPID SCREEN LIPID SCREEN [facility] Start: 08-22-2025 DIABETES SCREEN DIABETES SCREEN [facility] Start: 08-22-2025 Diabetes Screening Diabetes Screenin g [facility] Start: 11-28-2024 Annual PCP Team Director Of Casino [employer] wenceslao Disease Visit Annual PCP Team Chronic Disease Visit [facility] Start: 09-04-2024 Annual PCP Team Director Of Casino [employer] wenceslao Disease Visit Annual PCP Team Chronic Disease Visit [facility] Start: 06-29-2024 DIABETES SCREEN DIABETES SCREEN [facility] Start: 05-16-2024 ANNUAL PCP TEAM CALIBRATOR BAROMETERS WENCESLAO DISEASE VISIT ANNUAL PCP TEAM CHRONIC DISEASE VISIT [facility] Start: 05-16-2024 BP CONTROLLED (<130/80) BP CONTROLLE D (<130/80) [facility] Start: 01-27-2024 RSV Vaccine (1 - 1-d ose 60+ series) RSV Vaccine (1 - 1-dose 60+ series) [facility] Immunizations Immunization Date Immunization Notes Care Provider Nicanor sy 09-04-2023 COVID-19 vaccine, ag e 12+ yr, season (PFIZER-BIONTECH) Ida Eduardo INSTRUMENT MAKER.[facility] Work Phone: [facility] Work Phone: 09-04-2023 influenza (HD-IIV4) vaccine, age 65+ yr, high dose, quadrivalent, PF (FLUZONE HIGH-DOSE) Ida Eduardo INSTRUMENT MAKER.[facility] Work Phone: [facility] Work Phone: 08-22-2022 COVID-19 booster vaccine, age 12+ yr, bivalent (PFIZER-BIONTECH) Susi Jackson MD Work Phone: [facility] Work Phone: 08-22-2022 influenza, high-dose , quadrivalent vaccine (FLUZONE HIGH DOSE QUADRIVALENT) Susi Jackson MD Work Phone: [facility] Work Phone: 09-07-2021 COVID-19 vaccine, ag e 12+ yr (PFIZER-BIONTECH - PURPLE TOP) Jocelyne [facility] 08-24-2021 influenza, high-dose , quadrivalent vaccine (FLUZONE HIGH DOSE QUADRIVALENT) Jocelyne [facility] Work Phone: 02-17-2021 COVID-19 vaccine, ag e 12+ yr (PFIZER-BIONTECH - PURPLE TOP) Jocelyne [facility] Work Phone: 01-27-2021 COVID-19 vaccine, ag e 12+ yr (PFIZER-BIONTECH - PURPLE TOP) Jocelyne [facility] Work Phone: 08-05-2020 influenza, high-dose , quadrivalent vaccine (FLUZONE HIGH DOSE QUADRIVALENT) [facility] 04-11-2020 zoster vaccine recombinant [facility] 12-17-2019 tetanus toxoid, redu evelyn diphtheria toxoid, and acellular pertussis vaccine, adsorbed [facility] 12-17-2019 zoster vaccine recombinant [facility] 11-30-2019 influenza, high dose seasonal, preservative-free [facility] 09-29-2018 influenza, high dose seasonal, preservative-free [facility] 09-09-2017 zoster vaccine, live [facility] 09-02-2017 influenza, high dose seasonal, preservative-free [facility] Work Phone: 12-22-2016 influenza, high dose seasonal, preservative-free [facility] Work Phone: 10-10-2015 influenza, high dose seasonal, preservative-free [facility] 02-04-2015 pneumococcal conjuga te vaccine, 13 valent [facility] 10-16-2014 influenza, seasonal, injectable [facility] Work Phone: 09-21-2013 influenza virus vacc ine, unspecified formulation [facility] 11-21-2012 pneumococcal polysaccharide vaccine, 23 valent [facility] 09-15-2012 influenza virus vacc ine, unspecified formulation [facility] 12-02-2011 influenza virus vacc ine, unspecified formulation [facility] 09-11-2010 influenza virus vacc ine, unspecified formulation [facility] Work Phone: 08-19-2009 influenza virus vacc ine, unspecified formulation [facility] 10-09-2006 influenza virus vacc ine, whole virus [facility] Work Phone: 09-17-2005 influenza virus vacc ine, whole virus [facility] Work Phone: Payers Date Payer Category Payer Medicare AETNA MEDICARE A ETNA MEDICARE PPO [id number] 2021-Present [phone] [address] [place] [address] PPO [id number] 2021 Medicare AETNA MEDICARE A ETNA MEDICARE PPO [id number] 2021-Present [phone] [address] [place] [address] PPO [id number] 2021 Medicare [id number] 2016 Medicare AETNA MEDICARE A ETNA MEDICARE PPO [id number] 2016-Present [phone] [address] [place] [address] PPO [id number] Social History Date Type Detail Facility [facility]: [facility] Start: 11-27-1985 History of tobacco use Cigarette Smo ker [facility] Start: 08-31-2021 End: 11-28-2023 Alcohol intake Current non-drinker of alcohol (finding) [facility] Start: 12-30-2015 End: 08-22-2022 Tobacco Comment Working on quitting. Down to less than half PPD [facility] Start: 1945 Sex Assigned At Not on file [facility] Start: 02-26-2022 End: 10-07-2022 Exposure to SARS-CoV-2 (event) Not sure [facility] Work Phone: Start: 08-22-2022 End: 04-11-2023 Cigarettes smoked current (pack per day) - Reported 0.3 [facility] Work Phone: Start: 08-22-2022 End: 09-26-2022 Tobacco use and exposure Smokeless tobacco non-user [facility] Work Phone: Start: 11-27-1985 Tobacco smoking stat us [facility] Occasional tobacco smoker [facility] Start: 04-11-2023 End: 05-16-2023 Tobacco use panel [facility] Work Phone: Adult Depression Screening Assessment 0 [facility] Work Phone: Clinical Notes 12-06-2005 to 11-29-2023 Hailey Birch MD - 11/28/2023 4:52 PM ESTTelephone Encounter - Kayleigh Webb LPN - 10/31/2023 1:39 PM ESTTelephone Encounter - Alondra Cook RN - 10/31/2023 11:37 AM EST Note Date & Type Note Facility 11-29-2023 Note HNO ID: [id number] Author: Robinson Garcia Mammo Tech Service: ? Author Type: Technologist Type: Progress Notes Filed: 11/29/2023 3:55 PM Note Text: Radiology Service Progress Note PATIENT NAME: Tamera Rodriguez DATE OF SERVICE: November 29, 2023 TIME: 3:54 PM PATIENT IDENTITY VERIFICATION COMPLETED USING TWO (2) IDENTIFIERS: Name and Date of confirmed by patient verbally. FALL SCREENING: Has the patient had 2 falls in the last year or 1 fall with injury or currently using an Ambulatory Assistive Device (Walker, Cane, Wheelchair, Crutches, etc.)? Yes, Patient High Risk for Falls What interventions were put in place to prevent falls during this visit? Increased Observations by Caregivers PATIENT GENDER DATA: Female. status: : No status: NO. PATIENT RELEVANT IMPLANT DATA REVIEWED: Not Applicable RADIOLOGY DEPARTMENT: Mammography PERIPHERAL IV DATA: Not applicable SIGNED BY: Jose Gore November 29, 2023 3:54 PM [facility] 11-28-2023 Note HNO ID: [id number] Author: HAILEY BIRCH MD Service: ? Author Type: Physician Type: Progress Notes Filed: 12/24/2023 16:03 Note Text: This note was created using ProNerveriter. Subjective Tamera Rodriguez is a 78 year old female. Patient presents with: F/U 6 months SUBJECTIVE: Tamera Rodriguez is a 78 year old year old lady here today for 6 month follow up appointment for review of medical conditions. Noted that was treated for UTI with macrobid beginning of October. UTI symptoms resolved. Having phlegm every morning. All day coughing up some phlegm. Some colored sputum. No fevers or chills. 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 Symptoms not resolving. Sinuses affected now. Also has allergic rhinitis. Switching to [facility] due to problems at [facility]. Noted cost of albuterol and tessalon perles at [facility] since not covered with her insurance. See assessment and plan for other issues addressed. PAST MEDICAL HISTORY Diagnosis Date Acute pharyngitis Allergic rhinitis 08/19/2009 Benign neoplasm of colon Carpal tunnel syndrome Degeneration of intervertebral disc, site unspecified HYPERTENSION NOS 12/06/2005 HYPOTHYROIDISM NOS 12/06/2005 not needing thyroid replacement s/p thyroidectomy Labyrinthitis, unspecified Obesity S/P thyroidectomy Current Outpatient Medications Medication Sig meclizine (ANTIVERT) 25 mg tab Take 1 tablet by mouth every 6 hours as needed. FOR DIZZINESS traMADol (ULTRAM) 50 mg tablet Take 1 tablet by mouth every 6 hours as needed for pain for up to 180 days. metoprolol tartrate, short acting, (LOPRESSOR) 25 mg tablet Take 2 tablets by mouth every morning AND 1 tablet every evening. loratadine (CLARITIN) 10 mg tablet Take 1 tablet by mouth once daily. triamterene-hydroCHLOROthiazide (DYAZIDE) 37.5-25 mg per capsule Take 1-2 capsules by mouth once daily. As directed amLODIPine (NORVASC) 10 mg tablet Take 1 tablet by mouth once daily. Benzonatate 200 mg capsule Take 1 capsule by mouth three times daily as needed. albuterol HFA (VENTOLIN HFA) 90 mcg/actuation inhaler Inhale 2 Puffs as instructed every 4 hours as needed for wheezing/shortness of breath. ondansetron orally disintegrating (ZOFRAN ODT) 4 mg disintegrating tablet Take 1 tablet by mouth every 6 hours as needed for nausea/vomiting. latanoprostene bunod (VYZULTA) 0.024 % 1 Drop daily at bedtime. sodium chloride-aloe vera (AYR SALINE GEL) nasal spray Use 1 mL in the nose four times daily as needed (for nasal congestion and drainage). Compression Knee Highs KNEE HIGH COMPRESSION STOCKINGS 8-15 MMHg. DX: EDEMA acetaminophen(TYLENOL EXTRA STRENGTH 500 MG TAB) Take two(2) tablets every six(6) hours as needed for pain. No current facility-administered medications for this visit. Review of Systems Objective BP 136/78 Pulse 68 Temp 36 ?C (96.8 ?F) Resp 18 Wt 106.6 kg (235 lb) SpO2 96% BMI 38.39 kg/m? Physical Exam Constitutional: Appearance: Normal appearance. She is obese. HENT: Head: Normocephalic. Comments: Tender sinuses, more in frontal sinuses Eyes: General: No scleral icterus. Musculoskeletal: Right lower leg: Edema present. Left lower leg: Edema (left ankle more swollen than left) present. Neurological: Mental Status: She is alert. Assessment and Plan Encounter Diagnosis ICD-10-CM 1. Sinobronchitis J32.9 Benzonatate 200 mg capsule J40 azithromycin (ZITHROMAX) 250 mg tablet Ongoing synptroms of infection.Treating for bacterial infection. Furtherr evaluation and treatment as indicated 2. Impaired fasting glucose R73.01 HGB A1C COMP METABOLIC PANEL Continues present management. Still IFG, not DM 3. Primary hypertension I10 COMP METABOLIC PANEL CBC LIPID PANEL BASIC triamterene-hydroCHLOROthiazide (DYAZIDE) 37.5-25 mg per capsule amLODIPine (NORVASC) 10 mg tablet metoprolol tartrate, short acting, (LOPRESSOR) 25 mg tablet Fair control. Continues present medication maangement and lab follow up 4. Elevated LDL cholesterol level E78.00 LIPID PANEL BASIC Check labs. Continue efforts at healthy diet. Treat as indicated 5. Non-seasonal allergic rhinitis due to other allergic trigger J30.89 loratadine (CLARITIN) 10 mg tablet Continue present meds 6. Breast cancer screening by mammogram Z12.31 [place] SCREENING 7. Family history of breast cancer Z80.3 [place]AN[place] SCREENING 8. Class 2 obesity due to excess calories without serious comorbidity with body mass index (BMI) of 38.0 to 38.9 in adult E66.09 Z68.38 Weight staying in 227 to 235 rangepast year or so.Keep working on healthier lifestyle changes to lose weight and prevent DM, and control BP and lipids Above issues addressed with patient. Patient involved in shared decision making for management of medical issues. History and medications reviewed. Epic updated as needed Refills and/or prescriptions taken care of and meds adjusted as indicated after reviewed his (more content not included)... [facility] 11-28-2023 History of Presen t illness Narrative This note was created using [employer]. Subjective Tamera Rodriguez is a 78 year old female. Patient presents with: F/U 6 months SUBJECTIVE: Tamera Rodriguez is a 78 year old year old lady here today for 6 month follow up appointment for review of medical conditions. Noted that was treated for UTI with macrobid beginning of October. UTI symptoms resolved. Having phlegm every morning. All day coughing up some phlegm. Some colored sputum. No fevers or chills. 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 Symptoms not resolving. Sinuses affected now. Also has allergic rhinitis. Switching to [facility] due to problems at [facility]. Noted cost of albuterol and tessalon perles at [facility] since not covered with her insurance. See assessment and plan for other issues addressed. PAST MEDICAL HISTORY Diagnosis Date Acute pharyngitis Allergic rhinitis 08/19/2009 Benign neoplasm of colon Carpal tunnel syndrome Degeneration of intervertebral disc, site unspecified HYPERTENSION NOS 12/06/2005 HYPOTHYROIDISM NOS 12/06/2005 not needing thyroid replacement s/p thyroidectomy Labyrinthitis, unspecified Obesity S/P thyroidectomy Current Outpatient Medications Medication Sig meclizine (ANTIVERT) 25 mg tab Take 1 tablet by mouth every 6 hours as needed. FOR DIZZINESS traMADol (ULTRAM) 50 mg tablet Take 1 tablet by mouth every 6 hours as needed for pain for up to 180 days. metoprolol tartrate, short acting, (LOPRESSOR) 25 mg tablet Take 2 tablets by mouth every morning AND 1 tablet every evening. loratadine (CLARITIN) 10 mg tablet Take 1 tablet by mouth once daily. triamterene-hydroCHLOROthiazide (DYAZIDE) 37.5-25 mg per capsule Take 1-2 capsules by mouth once daily. As directed amLODIPine (NORVASC) 10 mg tablet Take 1 tablet by mouth once daily. Benzonatate 200 mg capsule Take 1 capsule by mouth three times daily as needed. albuterol HFA (VENTOLIN HFA) 90 mcg/actuation inhaler Inhale 2 Puffs as instructed every 4 hours as needed for wheezing/shortness of breath. ondansetron orally disintegrating (ZOFRAN ODT) 4 mg disintegrating tablet Take 1 tablet by mouth every 6 hours as needed for nausea/vomiting. latanoprostene bunod (VYZULTA) 0.024 % 1 Drop daily at bedtime. sodium chloride-aloe vera (AYR SALINE GEL) nasal spray Use 1 mL in the nose four times daily as needed (for nasal congestion and drainage). Compression Knee Highs KNEE HIGH COMPRESSION STOCKINGS 8-15 MMHg. DX: EDEMA acetaminophen(TYLENOL EXTRA STRENGTH 500 MG TAB) Take two(2) tablets every six(6) hours as needed for pain. No current facility-administered medications for this visit. Review of Systems Objective BP 136/78 Pulse 68 Temp 36 C (96.8 F) Resp 18 Wt 106.6 kg (235 lb) SpO2 96% BMI 38.39 kg/m Physical Exam Constitutional: Appearance: Normal appearance. She is obese. HENT: Head: Normocephalic. Comments: Tender sinuses, more in frontal sinuses Eyes: General: No scleral icterus. Musculoskeletal: Right lower leg: Edema present. Left lower leg: Edema (left ankle more swollen than left) present. Neurological: Mental Status: She is alert. Assessment and Plan Encounter Diagnosis ICD-10-CM 1. Sinobronchitis J32.9 Benzonatate 200 mg capsule J40 azithromycin (ZITHROMAX) 250 mg tablet Ongoing synptroms of infection.Treating for bacterial infection. Furtherr evaluation and treatment as indicated 2. Impaired fasting glucose R73.01 HGB A1C COMP METABOLIC PANEL Continues present management. Still IFG, not DM 3. Primary hypertension I10 COMP METABOLIC PANEL CBC LIPID PANEL BASIC triamterene-hydroCHLOROthiazide (DYAZIDE) 37.5-25 mg per capsule amLODIPine (NORVASC) 10 mg tablet metoprolol tartrate, short acting, (LOPRESSOR) 25 mg tablet Fair control. Continues present medication maangement and lab follow up 4. Elevated LDL cholesterol level E78.00 LIPID PANEL BASIC Check labs. Continue efforts at healthy diet. Treat as indicated 5. Non-seasonal allergic rhinitis due to other allergic trigger J30.89 loratadine (CLARITIN) 10 mg tablet Continue present meds 6. Breast cancer screening by mammogram Z12.31 [place] SCREENING 7. Family history of breast cancer Z80.3 DANNY SCREENING 8. Class 2 obesity due to excess calories without serious comorbidity with body mass index (BMI) of 38.0 to 38.9 in adult E66.09 Z68.38 Weight staying in 227 to 235 rangepast year or so.Keep working on healthier lifestyle changes to lose weight and prevent DM, and control BP and lipids Above issues addressed with patient. Patient involved in shared decision making for management of medical issues. History and medications reviewed. Epic updated as needed Refills and/or prescriptions taken care of and meds adjusted as indicated after reviewed history, exam and labs. Health Maintenance reviewed. Updated record and/or ordered tests as recorded. Encouraged on efforts at healthy diet and regular exercise and adequate sleep. Hailey Birch MD documented in this encounter [facility] 10-31-2023 Miscellaneous Notes Pt reports she is still having symptoms. She is going to get the prescription. Kayleigh Webb LPN Attempted to call pt with no answer and no voicemail set up. MyChart msg sent. Can repeat macrobid if symptomatic, Rx sent. Spoke with patient and gave her providers message. Patient states she still has some cramping and some pressure but no other symptoms. Please ler her know that hematuria resolved, but appears may still have UTI. Does she have any symptoms? documented in this encounter [facility] 09-25-2023 Miscellaneous Notes Patient has been identified by name and date of : Yes, Provider Date Time Patient phones for refill(s): Requested Prescriptions Pending Prescriptions Disp Refills meclizine (ANTIVERT) 25 mg tab 30 tablet 5 Sig: Take 1 tablet by mouth every 6 hours as needed. FOR DIZZINESS Date of last office visit in primary care: 09/14/2023 Date of next office visit in primary care: 11/28/2023 Last 2 Encounter Wt Readings: Date: Wt: 09/14/2023 103 kg (227 lb) 05/16/2023 106.1 kg (234 lb) Previous labs/tests for medication: Not applicable Please advise. Thank you. Lily Victor RN. documented in this encounter [facility] 09-14-2023 Note HNO ID: [id number] Author: Lien Jiang APRN.HAZARDOUS SUBSTANCES SCIENTIST Service: ? Author Type: Nurse Specialist Type: Progress Notes Filed: 09/14/2023 4:03 PM Note Text: Patient presents with: uti symptoms 78 year old female presents with 2 day(s) of dysuria, frequency, urgency, and pressure. No retention, fever , chills, nausea, vomiting, and diarrhea. PMH:none. Review of Systems Genitourinary: Positive for dysuria, frequency and urgency. BP 132/75 Pulse 69 Resp 16 Wt 103 kg (227 lb) BMI 37.09 kg/m? Physical Exam Vitals and nursing note reviewed. Constitutional: Appearance: Normal appearance. HENT: Head: Normocephalic and atraumatic. Eyes: Conjunctiva/sclera: Conjunctivae normal. Cardiovascular: Rate and Rhythm: Normal rate. Pulmonary: Effort: Pulmonary effort is normal. Musculoskeletal: Right lower leg: No edema. Left lower leg: No edema. Skin: General: Skin is warm and dry. Neurological: General: No focal deficit present. Mental Status: She is alert and oriented to person, place, and time. ASSESSMENT: Uncomplicated UTI 1. UTI symptoms - ICD9: 788.99, ICD10: R39.9 (primary diagnosis) 4. Acute cystitis with hematuria - ICD9: 595.0, ICD10: N30.01 5. Dysuria - ICD9: 788.1, ICD10: R30.0 6. Urinary frequency - ICD9: 788.41, ICD10: R35.0 - UA DIP, URINE (POC) - URINE CULTURE - NITROFURANTOIN MONOHYDRATE AND MACROCRYSTAL 100 MG ORAL CAP 2. Encounter for immunization - ICD9: V03.89, ICD10: Z23 - RSV PRINTED PHARMACY INSTRUCTIONS 3. Degeneration of lumbar or lumbosacral intervertebral disc - ICD9: 722.52, ICD10: M51.37 Intermittent use of tramadol for back pain. Effective. No adverse effects noted. - TRAMADOL 50 MG TABLET Lien Jiang APRN.HAZARDOUS SUBSTANCES SCIENTIST Medical Decision Making: Problems: Low: Acute, uncomplicated illness or injury Risk: Moderate: Drug management Medical Decision Making Level: 3 - Low [facility] 09-14-2023 History of Presen t illness Narrative Patient presents with: uti symptoms 78 year old female presents with 2 day(s) of dysuria, frequency, urgency, and pressure. No retention, fever , chills, nausea, vomiting, and diarrhea. PMH:none. Review of Systems Genitourinary: Positive for dysuria, frequency and urgency. BP 132/75 Pulse 69 Resp 16 Wt 103 kg (227 lb) BMI 37.09 kg/m Physical Exam Vitals and nursing note reviewed. Constitutional: Appearance: Normal appearance. HENT: Head: Normocephalic and atraumatic. Eyes: Conjunctiva/sclera: Conjunctivae normal. Cardiovascular: Rate and Rhythm: Normal rate. Pulmonary: Effort: Pulmonary effort is normal. Musculoskeletal: Right lower leg: No edema. Left lower leg: No edema. Skin: General: Skin is warm and dry. Neurological: General: No focal deficit present. Mental Status: She is alert and oriented to person, place, and time. ASSESSMENT: Uncomplicated UTI 1. UTI symptoms - ICD9: 788.99, ICD10: R39.9 (primary diagnosis) 4. Acute cystitis with hematuria - ICD9: 595.0, ICD10: N30.01 5. Dysuria - ICD9: 788.1, ICD10: R30.0 6. Urinary frequency - ICD9: 788.41, ICD10: R35.0 - UA DIP, URINE (POC) - URINE CULTURE - NITROFURANTOIN MONOHYDRATE & MACROCRYSTAL 100 MG ORAL CAP 2. Encounter for immunization - ICD9: V03.89, ICD10: Z23 - RSV PRINTED PHARMACY INSTRUCTIONS 3. Degeneration of lumbar or lumbosacral intervertebral disc - ICD9: 722.52, ICD10: M51.37 Intermittent use of tramadol for back pain. Effective. No adverse effects noted. - TRAMADOL 50 MG TABLET Lien Jiang APRN.CNS Medical Decision Making: Problems: Low: Acute, uncomplicated illness or injury Risk: Moderate: Drug management Medical Decision Making Level: 3 - Low documented in this encounter [facility] 09-14-2023 Instructions Lien Jiang APRN.CNS - 09/14/2023 3:58 PM EDT Images from the original note were not included. Urinary Problem-When to Seek Help? Symptoms of a urinary problem may lead to a bladder infection. Women are at greater risk of a urinary tract infection than are men. Most urinary tract infections in women are caused by bacteria and involve the lower urinary tract including the bladder and urethra. Symptoms: Pain or burning when passing urine, urgency, frequency, blood in the urine, difficult emptying your bladder, and lower abdominal fullness or pressure. Common Causes: Sexual intercourse, menopause, constipation, uncontrolled diabetes, dehydration and feminine products such as tampons, and kidney stones. When to Get Help: Seek medical attention if you get frequent bladder infections, urinary concerns such as leakage, blood in the urine or frequent need to urinate. You may be recommended to get help from a specialist, such as a urologist. Diagnosis & Treatment: Lab testing may include: urinalysis, and urine culture that can be collected in the lab or walk-in clinic. Most bladder infections can easily be treated. A physician, nurse practitioner or physician insurance administrative assistant may treat with a short course of an antibiotic. Delaying treatment can lead to worsening symptoms, like a kidney infection. Self-Care: Avoid a full bladder, bubble baths, bath oils, food and beverages that may irritate the bladder such as caffeine. Avoid spermicide foam and diaphragms Void before and after sexual intercourse Wipe front to back after using the bathroom. Stay hydrated Stop Smoking Follow-up Care: Follow up testing is not needed in healthy young women if symptoms resolve. documented in this encounter [facility] 09-04-2023 Note HNO ID: [id number] Author: Ida Eduardo APRN.CNP Service: ? Author Type: Nurse Practitioner Type: Progress Notes Filed: 09/04/2023 3:57 PM Note Text: Patient in for flu and COVID vaccines. Ordered, administered per Dustin Hartman LPN. See vaccine administration. [facility] 09-04-2023 History of Presen t illness Narrative Patient in for flu and COVID vaccines. Ordered, administered per Dustin Hartman LPN. See vaccine administration. documented in this encounter [facility] 05-16-2023 Note HNO ID: [id number] Author: Lien Jiang APRN.HAZARDOUS SUBSTANCES SCIENTIST Service: ? Author Type: Nurse Specialist Type: Progress Notes Filed: 05/16/2023 4:40 PM Note Text: SUBJECTIVE: BP CONTROLLED (<130/80) due on 04/06/2022 ADVANCE DIRECTIVE DISCUSSION due on 11/27/2022 DEPRESSION ASSESSMENT Never done ANNUAL PCP TEAM CHRONIC DISEASE VISIT due on 03/18/2023 MICKI Rodriguez is a 77 year old female. Past medical history significant for hypertension rhinitis impaired fasting glucose obesity backache goiter status post thyroidectomy and smoking. Notes nasal congestion and cough. Last 14 Encounter BP Readings: Date: BP: 05/16/2023 132/72 12/06/2022 146/84 10/07/2022 148/80 09/26/2022 150/65 08/29/2022 163/83 08/22/2022 144/74 03/09/2022 150/78 08/31/2021 122/62 08/24/2021 124/70 06/29/2021 128/70 04/06/2021 136/74 03/01/2021 152/82 05/20/2020 158/76 01/28/2020 146/62 Review of Systems Constitutional: Negative for fever. HENT: Positive for ear pain, rhinorrhea and sinus pressure. Negative for sore throat. Respiratory: Positive for cough. Negative for shortness of breath and wheezing. Objective BP 132/72 Pulse 64 Resp 16 Wt 106.1 kg (234 lb) BMI 38.23 kg/m? Physical Exam Vitals and nursing note reviewed. Constitutional: Appearance: Normal appearance. HENT: Head: Normocephalic and atraumatic. Right Ear: Tympanic membrane and ear canal normal. Left Ear: Tympanic membrane and ear canal normal. Nose: Nasal tenderness, mucosal edema and rhinorrhea present. Right Sinus: No maxillary sinus tenderness or frontal sinus tenderness. Left Sinus: No maxillary sinus tenderness or frontal sinus tenderness. Mouth/Throat: Lips: [place]. Mouth: Mucous membranes are moist. Pharynx: Oropharynx is clear. Tonsils: No tonsillar exudate. Eyes: Conjunctiva/sclera: Conjunctivae normal. Cardiovascular: Rate and Rhythm: Normal rate and regular rhythm. Heart sounds: Normal heart sounds. Pulmonary: Effort: Pulmonary effort is normal. Breath sounds: Normal breath sounds. Musculoskeletal: Right lower leg: No edema. Left lower leg: No edema. Skin: General: Skin is warm and dry. Neurological: General: No focal deficit present. Mental Status: She is alert and oriented to person, place, and time. ALLERGIES Allergen Reactions Lisinopril Swelling Angioedema- adm [facility] 12/11/14 due to reaction. Etodolac GI Upset Noted butterflies in my stomach and feeling sick to her stomach. No emesis Flonase [Fluticason* Angioedema Tongue swelled up Penicillins Swelling throat swells up Medications albuterol HFA (VENTOLIN HFA) 90 mcg/actuation inhaler Inhale 2 Puffs as instructed every 4 hours as needed for wheezing/shortness of breath. meclizine (ANTIVERT) 25 mg tab Take 1 tablet by mouth every 6 hours as needed. FOR DIZZINESS ondansetron orally disintegrating (ZOFRAN ODT) 4 mg disintegrating tablet Take 1 tablet by mouth every 6 hours as needed for nausea/vomiting. metoprolol tartrate, short acting, (LOPRESSOR) 25 mg tablet Take 2 tablets by mouth every morning AND 1 tablet every evening. loratadine (CLARITIN) 10 mg tablet Take 1 tablet by mouth once daily. traMADol (ULTRAM) 50 mg tablet Take 1 tablet by mouth every 6 hours as needed for pain for up to 180 days. triamterene-hydroCHLOROthiazide (DYAZIDE) 37.5-25 mg per capsule Take 1-2 capsules by mouth once daily. As directed latanoprostene bunod (VYZULTA) 0.024 % 1 Drop daily at bedtime. sodium chloride-aloe vera (AYR SALINE GEL) nasal spray Use 1 mL in the nose four times daily as needed (for nasal congestion and drainage). amLODIPine (NORVASC) 10 mg tablet Take 1 tablet by mouth once daily. Compression Knee Highs KNEE HIGH COMPRESSION STOCKINGS 8-15 MMHg. DX: EDEMA acetaminophen(TYLENOL EXTRA STRENGTH 500 MG TAB) Take two(2) tablets every six(6) hours as needed for pain. Benzonatate 200 mg capsule Take 1 capsule by mouth three times daily as needed. (Patient not taking: Reported on 05/16/2023) PAST MEDICAL HISTORY Diagnosis Date Acute pharyngitis Allergic rhinitis 08/19/2009 Benign neoplasm of colon Carpal tunnel syndrome Degeneration of intervertebral disc, site unspecified HYPERTENSION NOS 12/06/2005 HYPOTHYROIDISM NOS 12/06/2005 not needing thyroid replacement s/p thyroidectomy Labyrinthitis, unspecified Obesity S/P thyroidectomy Social History Tobacco Use Smoking status: Some Days Packs/day: 0.30 Types: Cigarettes Start date: 11/27/1985 Smokeless tobacco: Never Tobacco comments: Working on quitting. Down to less than half PPD Vaping Use Vaping Use: Never used Substance Use Topics Alcohol use: No Drug use: No Component Latest Ref Rng AND Units 08/22/2022 Protein, Total 6.3 - 8.0 g/dL 7.4 Albumin 3.9 - 4.9 g/dL 4.2 Calcium 8.5 - 10.2 mg/dL 9.8 Bilirubin, Total 0.2 - 1.3 mg/dL 0.3 Alkaline Phosphatase 34 - 123 U/L 78 AST 13 - 35 U/L 19 ALT 7 - 38 U/L (more content not included)... [facility] 05-16-2023 History of Presen t illness Narrative SUBJECTIVE: BP CONTROLLED (<130/80) due on 04/06/2022 ADVANCE DIRECTIVE DISCUSSION due on 11/27/2022 DEPRESSION ASSESSMENT Never done ANNUAL PCP TEAM CHRONIC DISEASE VISIT due on 03/18/2023 MICKI Rodriguez is a 77 year old female. Past medical history significant for hypertension rhinitis impaired fasting glucose obesity backache goiter status post thyroidectomy and smoking. Notes nasal congestion and cough. Last 14 Encounter BP Readings: Date: BP: 05/16/2023 132/72 12/06/2022 146/84 10/07/2022 148/80 09/26/2022 150/65 08/29/2022 163/83 08/22/2022 144/74 03/09/2022 150/78 08/31/2021 122/62 08/24/2021 124/70 06/29/2021 128/70 04/06/2021 136/74 03/01/2021 152/82 05/20/2020 158/76 01/28/2020 146/62 Review of Systems Constitutional: Negative for fever. HENT: Positive for ear pain, rhinorrhea and sinus pressure. Negative for sore throat. Respiratory: Positive for cough. Negative for shortness of breath and wheezing. Objective BP 132/72 Pulse 64 Resp 16 Wt 106.1 kg (234 lb) BMI 38.23 kg/m Physical Exam Vitals and nursing note reviewed. Constitutional: Appearance: Normal appearance. HENT: Head: Normocephalic and atraumatic. Right Ear: Tympanic membrane and ear canal normal. Left Ear: Tympanic membrane and ear canal normal. Nose: Nasal tenderness, mucosal edema and rhinorrhea present. Right Sinus: No maxillary sinus tenderness or frontal sinus tenderness. Left Sinus: No maxillary sinus tenderness or frontal sinus tenderness. Mouth/Throat: Lips: [place]. Mouth: Mucous membranes are moist. Pharynx: Oropharynx is clear. Tonsils: No tonsillar exudate. Eyes: Conjunctiva/sclera: Conjunctivae normal. Cardiovascular: Rate and Rhythm: Normal rate and regular rhythm. Heart sounds: Normal heart sounds. Pulmonary: Effort: Pulmonary effort is normal. Breath sounds: Normal breath sounds. Musculoskeletal: Right lower leg: No edema. Left lower leg: No edema. Skin: General: Skin is warm and dry. Neurological: General: No focal deficit present. Mental Status: She is alert and oriented to person, place, and time. ALLERGIES Allergen Reactions Lisinopril Swelling Angioedema- adm [facility] 12/11/14 due to reaction. Etodolac GI Upset Noted butterflies in my stomach and feeling sick to her stomach. No emesis Flonase [Fluticason* Angioedema Tongue swelled up Penicillins Swelling throat swells up Medications albuterol HFA (VENTOLIN HFA) 90 mcg/actuation inhaler Inhale 2 Puffs as instructed every 4 hours as needed for wheezing/shortness of breath. meclizine (ANTIVERT) 25 mg tab Take 1 tablet by mouth every 6 hours as needed. FOR DIZZINESS ondansetron orally disintegrating (ZOFRAN ODT) 4 mg disintegrating tablet Take 1 tablet by mouth every 6 hours as needed for nausea/vomiting. metoprolol tartrate, short acting, (LOPRESSOR) 25 mg tablet Take 2 tablets by mouth every morning AND 1 tablet every evening. loratadine (CLARITIN) 10 mg tablet Take 1 tablet by mouth once daily. traMADol (ULTRAM) 50 mg tablet Take 1 tablet by mouth every 6 hours as needed for pain for up to 180 days. triamterene-hydroCHLOROthiazide (DYAZIDE) 37.5-25 mg per capsule Take 1-2 capsules by mouth once daily. As directed latanoprostene bunod (VYZULTA) 0.024 % 1 Drop daily at bedtime. sodium chloride-aloe vera (AYR SALINE GEL) nasal spray Use 1 mL in the nose four times daily as needed (for nasal congestion and drainage). amLODIPine (NORVASC) 10 mg tablet Take 1 tablet by mouth once daily. Compression Knee Highs KNEE HIGH COMPRESSION STOCKINGS 8-15 MMHg. DX: EDEMA acetaminophen(TYLENOL EXTRA STRENGTH 500 MG TAB) Take two(2) tablets every six(6) hours as needed for pain. Benzonatate 200 mg capsule Take 1 capsule by mouth three times daily as needed. (Patient not taking: Reported on 05/16/2023) PAST MEDICAL HISTORY Diagnosis Date Acute pharyngitis Allergic rhinitis 08/19/2009 Benign neoplasm of colon Carpal tunnel syndrome Degeneration of intervertebral disc, site unspecified HYPERTENSION NOS 12/06/2005 HYPOTHYROIDISM NOS 12/06/2005 not needing thyroid replacement s/p thyroidectomy Labyrinthitis, unspecified Obesity S/P thyroidectomy Social History Tobacco Use Smoking status: Some Days Packs/day: 0.30 Types: Cigarettes Start date: 11/27/1985 Smokeless tobacco: Never Tobacco comments: Working on quitting. Down to less than half PPD Vaping Use Vaping Use: Never used Substance Use Topics Alcohol use: No Drug use: No Component Latest Ref Rng & Units 08/22/2022 Protein, Total 6.3 - 8.0 g/dL 7.4 Albumin 3.9 - 4.9 g/dL 4.2 Calcium 8.5 - 10.2 mg/dL 9.8 Bilirubin, Total 0.2 - 1.3 mg/dL 0.3 Alkaline Phosphatase 34 - 123 U/L 78 AST 13 - 35 U/L 19 ALT 7 - 38 U/L 13 Glucose 74 - 99 mg/dL 94 BUN 7 - 21 mg/dL 13 Creatinine 0.58 - 0.96 mg/dL 0.69 Sodium 136 - 144 mmol/L 137 Potassium 3.7 - 5.1 mmol/L 4.2 Chloride 97 - 105 mmol/L 99 CO2 22 - 30 mmol/L 25 Anion Gap 9 - 18 mmol/L 13 eGFR >=60 mL/min/1.73m 91 WBC 3.70 - 11.00 k/uL 7.94 RBC 3.90 - 5.20 m/uL 4.93 Hemoglobin 11.5 - 15.5 g/dL 15.4 Hematocrit 36.0 - 46.0 % 46.8 (H) MCV 80.0 - 100.0 fL 94.9 MCH 26.0 - 34.0 pg 31.2 MCHC 30.5 - 36.0 g/dL 32.9 RDW-CV 11.5 - 15.0 % 12.8 Platelet Count 150 - 400 k/uL 309 MPV 9.0 - 12.7 fL 9.6 Absolute nRBC <0.01 k/uL <0.01 Hemoglobin A1C 4.3 - 5.6 % 6.0 (H) Estimated Average Glucose mg/dL 126 TSH 0.270 - 4.200 mIU/L 1.100 Free T4 0.9 - 1.7 ng/dL 1.0 ASSESSMENT/PLAN: 1. Essential hypertension, benign - ICD9: 401.1, ICD10: I10 (primary diagnosis) controlled - Continue current medications - Encouraged sodium restriction, DASH or Mediterranean diet - Recommend regular aerobic exercise - METOPROLOL TARTRATE 25 MG TABLET - TRIAMTERENE 37.5 MG-HYDROCHLOROTHIAZIDE 25 MG CAPSULE - AMLODIPINE 10 MG TABLET 2. Non-seasonal allergic rhinitis due to other allergic trigger - ICD9: 477.8, ICD10: J30.89 - LORATADINE 10 MG TABLET 3. Degeneration of lumbar or lumbosacral intervertebral disc - ICD9: 722.52, ICD10: M51.37 Intermittent use of pain medication for back pain, effective, no adverse effects. No alarm symptoms reported - TRAMADOL 50 MG TABLET 4. Acute bronchitis, unspecified organism - ICD9: 466.0, ICD10: J20.9 - AZITHROMYCIN 250 MG TABLET - BENZONATATE 200 MG CAPSULE Lien Jiang APRN.CNS Medical Decision Making: Problems: Low: Acute, uncomplicated illness or injury Moderate: 2+ stable chronic illnesses Risk: Moderate: Drug management Medical Decision Making Level: 4 - Moderate documented in this encounter [facility] 12-06-2022 History of Presen t illness Narrative Evaluation for URI SUBJECTIVE Tamera Rodriguez is a 77 year old female who presents with 3 weeks of symptoms that are improving. Symptoms include: Fever (?100.4F): No or Chills: No Cough: Yes, productive Shortness of breath: Yes or Difficulty breathing: No Fatigue: No Muscle aches: No Headache: No New loss of smell or taste: No Sore throat: No current Nasal congestion: Yes or Rhinorrhea: Yes Nausea: No or Vomiting: No Diarrhea: No OTC meds/remedies that patient has tried: acetaminophen, OTC cold medicine, and throat lozenges. High risk category assessment Age > 60 years old Exposures: Sick contacts? Yes, family with influenza A pneumonia Family or close contacts with confirmed/probable COVID-19 in last 14 days? No She reports that she has been smoking cigarettes. She started smoking about 37 years ago. She has been smoking an average of .3 packs per day. She has never used smokeless tobacco. OBJECTIVE PHYSICAL EXAM: BP 146/84 Pulse 69 Temp 37.1 C (98.7 F) Wt 102.1 kg (225 lb) SpO2 96% BMI 36.76 kg/m General appearance: tired/ill appearing, alert, cooperative, pleasant, in no acute distress Head: Normocephalic Eyes: conjunctiva/corneas normal Ears: R TM - not visualized secondary to cerumen, L TM - clear with good landmarks, nl light reflex Nose: clear Oropharynx: moist without lesions, mild erythema to GPA Neck: supple and small, benign anterior cervical nodes bilaterally Heart: regular rate and rhythm, without murmur Lungs: clear to auscultation, without rales or wheeze, good air exchange ASSESSMENT/PLAN (J32.9, J40) Sinobronchitis (primary encounter diagnosis) (J20.9) Acute bronchitis, unspecified organism (R05.1) Acute cough (J06.9) Acute URI (R06.02) SOBOE (shortness of breath on exertion) ASSESSMENT/PLAN: 1. Sinobronchitis - ICD9: 473.9, 490, ICD10: J32.9, J40 (primary diagnosis) - Will begin treatment with as per antibiotic as written, see orders - Supportive care with plenty of fluids, rest, and analgesia prn. 2. Acute bronchitis, unspecified organism - ICD9: 466.0, ICD10: J20.9 - BENZONATATE 200 MG CAPSULE - AZITHROMYCIN 250 MG TABLET - PREDNISONE 10 MG TABLET 3. Acute cough - ICD9: 786.2, ICD10: R05.1 - XR CHEST 2V FRONTAL/LAT 4. Acute URI - ICD9: 465.9, ICD10: J06.9 - XR CHEST 2V FRONTAL/LAT 5. SOBOE (shortness of breath on exertion) - ICD9: 786.05, ICD10: R06.02 - XR CHEST 2V FRONTAL/LAT She will begin treatment with current medications. She will let us know if not feeling improved. Defers chest x-ray today, will complete if not feeling improved with treatment. Symptoms are mild to moderate. Has been able to continue with work. Lien Jiang APRN.CNS Medical Decision Making: Problems: Low: Acute, uncomplicated illness or injury Data: Unique test(s) ordered: 1 Risk: Moderate: Drug management Medical Decision Making Level: 3 - Low documented in this encounter [facility] 10-07-2022 Instructions Shantal Bernal PA-C - 10/07/2022 3:09 PM EST The following instructions are important for you related to your office visit today with the [facility]. INSTRUCTIONS FOLLOWING A POLYP FOUND AT COLONOSCOPY You were found to have an adenomatous colon polyp. I recommend you undergo repeat endoscopy in 5 years. If you note bleeding, change in bowel habits, or other suspicious colon related symptoms before that time, those symptoms should be evaluated as necessary. If you have any difficulties or concerns, you should contact our office immediately. If you note any additional difficulties, questions, or concerns, you should contact our office immediately @ [phone] and ask to be transferred to the General Surgery department. documented in this encounter [facility] 10-07-2022 History of Presen t illness Narrative FOLLOW UP VISIT - ENDOSCOPY NAME: Tamera Whipple [facility] NO.: [id number] DATE OF SERVICE: 10/07/2022 : 1945 REFERRING PHYSICIAN: Hailey Birch MD Tamera is a patient I am following for history of colon polyps and need for high-risk surveillance colonoscopy. Dr. Jackson performed lower endoscopy on 09/26/22. Findings per endoscopy report showed: Findings: The perianal and digital rectal examinations were normal. Non-bleeding internal hemorrhoids were found. A 4 to 7 mm polyp was found in the sigmoid colon. The polyp was sessile. The polyp was removed with a cold snare. Resection and retrieval were complete. Verification of patient identification for the specimen was done by the nurse. Estimated blood loss was minimal. Pathology demonstrated: FINAL DIAGNOSIS Sigmoid colon polyp, biopsy: - Tubular adenoma. JEL 09/28/2022 The patient notes no complaints since the procedure. VITALS: There were no vitals taken for this visit. General: patient is alert, cooperative, pleasant and in no acute distress On examination, the abdomen is benign. Assessment IMPRESSION: s/p colonoscopy with polypectomy-tubular adenoma x 1 PLAN: The operative findings and pathology report were reviewed with the patient, and the patient has had the opportunity to ask questions and have questions answered. If the patient notes any problems or changes in bowel function, the patient should contact me immediately. Otherwise I recommend follow up endoscopy in 5 years for surveillance per current guidelines. HM updated and recall letter generated. Patient verbalized understanding of all above and agreed with the plan Diagnoses: (Z86.010) History of colonic polyps (primary encounter diagnosis) (D12.5) Adenomatous polyp of sigmoid colon I spent a total of 22 minutes on the date of the service which included preparing to see the patient, [id number] patient care, completing clinical documentation, obtaining and/or reviewing separately obtained history, counseling and educating the patient/family/caregiver, independently interpreting results (not separately reported), and communicating results to the patient/family/caregiver. Shantal Bernal PA-C documented in this encounter [facility] 09-26-2022 Nurse Note Pt received in PACU. Pt moderately drowsy, but arouses easily. Denies pain or nausea. Abd soft and non distended. Alondra Cook RN Dr. Jackson notified of elevated BP. Alondra Cook RN documented in this encounter [facility] 09-26-2022 History and physical note UPDATED PROCEDURAL SEDATION HISTORY AND PHYSICAL EXAMINATION SERVICE DATE: 09/26/2022 SERVICE TIME: 12:08 PHYSICAL EXAM MUST BE COMPLETED ON ADMISSION PROCEDURE: colonoscopy, possible biopsies Procedure Indications: history of colon polyps The History and Physical (completed in the past 30 days) has been reviewed and the patient has been examined. The contents accurately reflect the patient's condition with the following additions or revisions since the H&P was completed. ASA Class: ASA Class:: Patient with severe systemic disease Examination indicates no changes. AIRWAY: Airway Visualization of Uvula: Yes Mouth opening greater than 2 fingerbreadths: Yes Neck Full Range of Motion: Yes LUNGS: Lungs clear to auscultation CARDIAC: Regular rhythm,Regular rate Provisional Diagnosis/Treatment Plan: colonoscopy, possible biopsies SEDATION GOAL: Moderate This H&P can be found in the Electronic Medical Record. SIGNATURE: Susi Jackson MD PATIENT NAME: Tamera Rodriguez DATE: September 26, 2022 TIME: 12:09 PM Source Note - Susi Jackson MD - 09/26/2022 12:45 PM EDT HISTORY AND PHYSICAL Tamera Rodriguez 1945 REFERRING PHYSICIAN: Lien Jiang APRN.HAZARDOUS SUBSTANCES SCIENTIST CHIEF COMPLAINT: Consult HPI: The patient is a 76 year old female referred for endoscopy. Tamera notes that she was told that she had colon polyps in her last colonoscopy in 2018. Pathology revealed - 1. Colon, cecal polyp, biopsy (A) - Sessile serrated polyp. 2. Colon, distal transverse polyp, biopsy (B) - Sessile serrated polyp. The patient states that overall she feels well. The patient denies blood in stools, denies abdominal pain, and denies changes in bowel habits. The patient notes no colon cancer in immediate family. PAST MEDICAL HISTORY Diagnosis Date Acute pharyngitis Allergic rhinitis 08/19/2009 Benign neoplasm of colon Carpal tunnel syndrome Degeneration of intervertebral disc, site unspecified HYPERTENSION NOS 12/06/2005 HYPOTHYROIDISM NOS 12/06/2005 not needing thyroid replacement s/p thyroidectomy Labyrinthitis, unspecified Obesity S/P thyroidectomy PAST SURGICAL HISTORY Procedure Laterality Date CHOLECYSTECTOMY HX 70s COLONOSCOPY FLX DX W/COLLJ SPEC WHEN PFRMD 01/28/2013 Colonoscopy COLONOSCOPY FLX DX W/COLLJ SPEC WHEN PFRMD 09/26/2016 Colonoscopy COLONOSCOPY FLX DX W/COLLJ SPEC WHEN PFRMD 08/29/2019 Colonoscopy COLONOSCOPY W/BIOPSY SINGLE/MULTIPLE 01/04/10 FNA WITH IMAGING Left 12/09/15 U/S FNA left thyroid PAST SURGICAL HISTORY OF 90 thyroidectomy for benign reasons TOTAL ABDOMINAL HYSTERECT W/WO RMVL TUBE OVARY 87 Dr. Rodriguez Current Outpatient Medications Medication Sig peg 3350-Electrolytes (GOLYTELY) 236-22.74-6.74 -5.86 gram suspension Take 4,000 mL by mouth one time only for 1 dose. Refer to printed prep instructions from your provider. meclizine (ANTIVERT) 25 mg tab Take 1 tablet by mouth every 6 hours as needed. FOR DIZZINESS ondansetron orally disintegrating (ZOFRAN ODT) 4 mg disintegrating tablet Take 1 tablet by mouth every 6 hours as needed for nausea/vomiting. Benzonatate 200 mg capsule Take 1 capsule by mouth three times daily as needed. metoprolol tartrate, short acting, (LOPRESSOR) 25 mg tablet Take 2 tablets by mouth every morning AND 1 tablet every evening. loratadine (CLARITIN) 10 mg tablet Take 1 tablet by mouth once daily. traMADol (ULTRAM) 50 mg tablet Take 1 tablet by mouth every 6 hours as needed for pain for up to 180 days. triamterene-hydroCHLOROthiazide (DYAZIDE) 37.5-25 mg per capsule Take 1-2 capsules by mouth once daily. As directed latanoprostene bunod (VYZULTA) 0.024 % 1 Drop daily at bedtime. sodium chloride-aloe vera (AYR SALINE GEL) nasal spray Use 1 mL in the nose four times daily as needed (for nasal congestion and drainage). amLODIPine (NORVASC) 10 mg tablet Take 1 tablet by mouth once daily. albuterol HFA (VENTOLIN HFA) 90 mcg/actuation inhaler Inhale 2 Puffs as instructed every 4 hours as needed for Wheezing/Shortness of Breath. hydrocortisone 2.5 % cream Apply 1 application to affected area twice daily. Location: bilateral upper extremities and upper back Compression Knee Highs KNEE HIGH COMPRESSION STOCKINGS 8-15 MMHg. DX: EDEMA acetaminophen(TYLENOL EXTRA STRENGTH 500 MG TAB) Take two(2) tablets every six(6) hours as needed for pain. ALLERGIES: Lisinopril, Etodolac, Flonase [Fluticasone Propionate], and Penicillins PERSONAL HISTORY: Social History Tobacco Use Smoking status: Every Day Packs/day: 0.30 Types: Cigarettes Start date: 11/27/1985 Smokeless tobacco: Never Tobacco comments: Working on quitting. Down to less than half PPD Substance Use Topics Alcohol use: No Drug use: No FAMILY HISTORY Problem Relation Age of Onset Colon Cancer Father Hypertension Mother Diabetes Mother Breast Cancer Paternal Grandmother REVIEW OF SYMPTOMS: The review of systems data was entered by the nurse and reviewed by me There are no exam notes on file for this visit. PHYSICAL EXAMINATION: General: The patient is 76 year old female, well nourished, well hydrated in no acute distress. The patient is oriented to time, place, and person. VITALS: Blood pressure 163/83, pulse 69, temperature 36.4 C (97.6 F), temperature source Temporal, resp. rate 22, weight 109.5 kg (241 lb 6.4 oz), SpO2 100 %. Body mass index is 39.44 kg/m . Head: Normal cephalic, atraumatic Eyes: pupils are equally round, sclera are clear/anicteric, wearing glasses Neck is supple with no tracheal deviation Respiratory: Normal respiratory excursion and pattern. Abdominal exam: soft obese and benign Extremities: no clubbing, cyanosis or edema. Neuro: non focal Psych: normal mood Assessment IMPRESSION: history of colon polyps PLAN: I have discussed the above with the patient. I have offered colonoscopy , possible biopsies I have explained the procedure to the patient. I have counseled the patient as to the risks of the procedure, including but not limited to: infection, bleeding, injury to any intrabdominal organs such as liver/spleen, perforation of the GI tract, inability to complete the procedure, complications of anesthesia, etc. - the patient understands. The patient was offered a surgery/procedure at a [facility] facility. The provider and patient have discussed in detail the risk of exposure to and/or potential harm posed by the COVID-19 virus with having a surgery/procedure at this time versus the risk of delaying the surgery/procedure. It is not possible to know either the risk of delaying the surgery or procedure or chance of getting an infection with perfect accuracy, but a joint decision was made between the patient and the provider to proceed at this time with the scheduled surgery/procedure. I have explained to the patient the difference between IV conscious sedation and MAC anesthesia - and I have offered either, according to the patient's wishes. I have explained that with IV conscious sedation there is no anesthesia provider available and therefore there is a limitation of the amount of IV medications that can be given and that the patient may wake up in the middle of the procedure and/or experience pain/discomfort during the procedure. Further discussion was done and the patient was given the opportunity to ask questions and all questions were answered. The patient chooses IV conscious sedation Patient was counseled that if there are changes in his/her medical condition, to let the office know if surgery should proceed. If there are changes in patient's medical condition from time of this encounter to the day of the procedure that preclude anesthesia, patient may have procedure cancelled for patient's safety. The patient wishes to proceed. I have reviewed the colon cleansing preparation with her and told patient that she may take her morning medications with sips of water on day of procedure. I have answered all questions to the patient s satisfaction and the patient has no further questions. Diagnoses: (Z12.11) Screening for colon cancer I have confirmed and edited as necessary, the PFSH and ROS obtained by others. Consultation requested by Lien Jiang for an opinion regarding for patient's history of colon polyps. My final recommendations will be communicated back to the requesting physician by way of shared Medical record or letter to requesting physician via US mail. Return to Clinic: The patient will be schedule for procedure at [facility] on 09/26/2022 Medical Decision Making: Risk: Low: Low risk from testing/treatment Medical Decision Making Level: 2 - Straightforward Susi Jackson MD HISTORY AND PHYSICAL Tamera Sarabjit Michael 1945 REFERRING PHYSICIAN: Lien Jiang APRN.HAZARDOUS SUBSTANCES SCIENTIST CHIEF COMPLAINT: Consult HPI: The patient is a 76 year old female referred for endoscopy. Tamera notes that she was told that she had colon polyps in her last colonoscopy in 2019. Pathology revealed - 1. Colon, cecal polyp, biopsy (A) - Sessile serrated polyp. 2. Colon, distal transverse polyp, biopsy (B) - Sessile serrated polyp. The patient states that overall she feels well. The patient denies blood in stools, denies abdominal pain, and denies changes in bowel habits. The patient notes no colon cancer in immediate family. PAST MEDICAL HISTORY Diagnosis Date Acute pharyngitis Allergic rhinitis 08/19/2009 Benign neoplasm of colon Carpal tunnel syndrome Degeneration of intervertebral disc, site unspecified HYPERTENSION NOS 12/06/2005 HYPOTHYROIDISM NOS 12/06/2005 not needing thyroid replacement s/p thyroidectomy Labyrinthitis, unspecified Obesity S/P thyroidectomy PAST SURGICAL HISTORY Procedure Laterality Date CHOLECYSTECTOMY HX 70s COLONOSCOPY FLX DX W/COLLJ SPEC WHEN PFRMD 01/28/2013 Colonoscopy COLONOSCOPY FLX DX W/COLLJ SPEC WHEN PFRMD 09/26/2016 Colonoscopy COLONOSCOPY FLX DX W/COLLJ SPEC WHEN PFRMD 08/29/2019 Colonoscopy COLONOSCOPY W/BIOPSY SINGLE/MULTIPLE 01/04/10 FNA WITH IMAGING Left 12/09/15 U/S FNA left thyroid PAST SURGICAL HISTORY OF 90 thyroidectomy for benign reasons TOTAL ABDOMINAL HYSTERECT W/WO RMVL TUBE OVARY 87 Dr. Rodriguez Current Outpatient Medications Medication Sig peg 3350-Electrolytes (GOLYTELY) 236-22.74-6.74 -5.86 gram suspension Take 4,000 mL by mouth one time only for 1 dose. Refer to printed prep instructions from your provider. meclizine (ANTIVERT) 25 mg tab Take 1 tablet by mouth every 6 hours as needed. FOR DIZZINESS ondansetron orally disintegrating (ZOFRAN ODT) 4 mg disintegrating tablet Take 1 tablet by mouth every 6 hours as needed for nausea/vomiting. Benzonatate 200 mg capsule Take 1 capsule by mouth three times daily as needed. metoprolol tartrate, short acting, (LOPRESSOR) 25 mg tablet Take 2 tablets by mouth every morning AND 1 tablet every evening. loratadine (CLARITIN) 10 mg tablet Take 1 tablet by mouth once daily. traMADol (ULTRAM) 50 mg tablet Take 1 tablet by mouth every 6 hours as needed for pain for up to 180 days. triamterene-hydroCHLOROthiazide (DYAZIDE) 37.5-25 mg per capsule Take 1-2 capsules by mouth once daily. As directed latanoprostene bunod (VYZULTA) 0.024 % 1 Drop daily at bedtime. sodium chloride-aloe vera (AYR SALINE GEL) nasal spray Use 1 mL in the nose four times daily as needed (for nasal congestion and drainage). amLODIPine (NORVASC) 10 mg tablet Take 1 tablet by mouth once daily. albuterol HFA (VENTOLIN HFA) 90 mcg/actuation inhaler Inhale 2 Puffs as instructed every 4 hours as needed for Wheezing/Shortness of Breath. hydrocortisone 2.5 % cream Apply 1 application to affected area twice daily. Location: bilateral upper extremities and upper back Compression Knee Highs KNEE HIGH COMPRESSION STOCKINGS 8-15 MMHg. DX: EDEMA acetaminophen(TYLENOL EXTRA STRENGTH 500 MG TAB) Take two(2) tablets every six(6) hours as needed for pain. ALLERGIES: Lisinopril, Etodolac, Flonase [Fluticasone Propionate], and Penicillins PERSONAL HISTORY: Social History Tobacco Use Smoking status: Every Day Packs/day: 0.30 Types: Cigarettes Start date: 11/27/1985 Smokeless tobacco: Never Tobacco comments: Working on quitting. Down to less than half PPD Substance Use Topics Alcohol use: No Drug use: No FAMILY HISTORY Problem Relation Age of Onset Colon Cancer Father Hypertension Mother Diabetes Mother Breast Cancer Paternal Grandmother REVIEW OF SYMPTOMS: The review of systems data was entered by the nurse and reviewed by me There are no exam notes on file for this visit. PHYSICAL EXAMINATION: General: The patient is 76 year old female, well nourished, well hydrated in no acute distress. The patient is oriented to time, place, and person. VITALS: Blood pressure 163/83, pulse 69, temperature 36.4 C (97.6 F), temperature source Temporal, resp. rate 22, weight 109.5 kg (241 lb 6.4 oz), SpO2 100 %. Body mass index is 39.44 kg/m . Head: Normal cephalic, atraumatic Eyes: pupils are equally round, sclera are clear/anicteric, wearing glasses Neck is supple with no tracheal deviation Respiratory: Normal respiratory excursion and pattern. Abdominal exam: soft obese and benign Extremities: no clubbing, cyanosis or edema. Neuro: non focal Psych: normal mood Assessment IMPRESSION: history of colon polyps PLAN: I have discussed the above with the patient. I have offered colonoscopy , possible biopsies I have explained the procedure to the patient. I have counseled the patient as to the risks of the procedure, including but not limited to: infection, bleeding, injury to any intrabdominal organs such as liver/spleen, perforation of the GI tract, inability to complete the procedure, complications of anesthesia, etc. - the patient understands. The patient was offered a surgery/procedure at a [facility] facility. The provider and patient have discussed in detail the risk of exposure to and/or potential harm posed by the COVID-19 virus with having a surgery/procedure at this time versus the risk of delaying the surgery/procedure. It is not possible to know either the risk of delaying the surgery or procedure or chance of getting an infection with perfect accuracy, but a joint decision was made between the patient and the provider to proceed at this time with the scheduled surgery/procedure. I have explained to the patient the difference between IV conscious sedation and MAC anesthesia - and I have offered either, according to the patient's wishes. I have explained that with IV conscious sedation there is no anesthesia provider available and therefore there is a limitation of the amount of IV medications that can be given and that the patient may wake up in the middle of the procedure and/or experience pain/discomfort during the procedure. Further discussion was done and the patient was given the opportunity to ask questions and all questions were answered. The patient chooses IV conscious sedation Patient was counseled that if there are changes in his/her medical condition, to let the office know if surgery should proceed. If there are changes in patient's medical condition from time of this encounter to the day of the procedure that preclude anesthesia, patient may have procedure cancelled for patient's safety. The patient wishes to proceed. I have reviewed the colon cleansing preparation with her and told patient that she may take her morning medications with sips of water on day of procedure. I have answered all questions to the patient s satisfaction and the patient has no further questions. Diagnoses: (Z12.11) Screening for colon cancer I have confirmed and edited as necessary, the PFSH and ROS obtained by others. Consultation requested by Lien Jiang for an opinion regarding for patient's history of colon polyps. My final recommendations will be communicated back to the requesting physician by way of shared Medical record or letter to requesting physician via [place] mail. Return to Clinic: The patient will be schedule for procedure at [facility] on 09/26/2022 Medical Decision Making: Risk: Low: Low risk from testing/treatment Medical Decision Making Level: 2 - Straightforward Susi Jackson MD documented in this encounter [facility] 09-21-2022 History of Presen t illness Narrative Episode Visit Count: 1 Therapist That Will Accept/Oversee The Plan Of Care: Fadumo Obrien Start of Care Date: 09/21/22 Onset Date: 08/22/22 Plan of Care Certification Date: 09/21/22 Next Certification Due Date: 10/26/22 Patient Identified by Name and Date of : Yes [facility] THERAPY PHYSICAL THERAPY EVALUATION PLAN OF CARE: Assessment: Tamera Rodriguez presents with diagnosis of dizziness that interferes with bed mobility;rising from a chair (supine > sit, head movements) . She presents with impairments in ADL's, balance, independence in exercise, overall function, patient reported outcome measures, symptom management, and functional performance testing indicates symptoms come on with supine > sitting as well as R dc-hallpike positional changes but without nystagmus. Symptoms last less than 30 seconds. Prognosis for therapy is Good due to: good support system/ coping skills;current objective clinical presentation . She will benefit from skilled therapy services to meet the goals established for this plan of care as noted below. Goals for Episode of Care: created on 09/21/22 through 11/02/22 Patient will be able to correct postural deviations independently in order to allow for normal mechanics, to decrease current pain and prevent future recurrence. Patient will improve DGI score to >19/24 in order to perform functional tasks with improved stability and reduced risk for falls. Patient will have negative positional testing for BPPV. Patient will demonstrate normal active cervical spine range of motion to restore posture and complete ADLS with trace report of dizziness/imbalance. Patient will be independent with home exercise program and progression. Patient will deny dizziness with supine to sit and R horizontal head turns, as well as dc-hallpike R. Patient will be able to walk household and community distances with safe, functional gait pattern with trace report of dizziness/imbalance. Patient will demonstrate the ability to complete VOR in static and dynamic positions with trace report of dizziness. Patient Goals: Reduce dizziness upon sitting up Planned Interventions, Frequency, and Duration: Current Frequency: 1x/week Duration: 6 weeks Total Number of Visits Planned: 6 Planned Treatment Interventions: Therapeutic exercise (26382);Neuromuscular re-education (71021);Manual therapy (87502);Therapeutic activities (28457);Self-long-term management (32367);Patient/Family/Caregive r Education;Gait Training (76248) PLAN FOR NEXT VISIT: Pt. to return to vestibular PT if dizziness symptoms return and interfere with ADLs. Continue VOR exercises at home and progress as instructed. Return to PT if having difficulty progressing gaze stabilization re-training to fast vertical and horrizontal head movements to greater than 1 minute keeping target within focus without symptoms. Consider habiutation supine > sitting and R dc-hallpike due to symptoms wihtout nystagmus observed with these movements Patient demonstrates good understanding of plan of care and treatment. The above goals and plan of care were discussed and agreed upon by patient/family. SUBJECTIVE: Tamera Rodriguez is a 77 year old female seen today for for sudden dizziness pt. descrives as self spinning upon sitting up that returned about 1 month ago. Pt. reports she has had similar symptoms that last a minute with bed mobility positional changes but usually symptoms resolve within a few days of taking meclizine. Pt. reports the symptoms were more severe and continued to come on with positional changes for several days until her dosage of meclizine was increased. She is no longer having dizziness with ADLs for at least 2 weeks and therefore no longer takes meclizine. Denies any symptoms with bed mobility, transfers, head movements, and bending forward. She denies upper respiratory symtpoms, headache, and reports no headache or visual changes. She has not had any falls within the past year and has been using a scanRiaCATASYSt cane to ambulate since November 2021. She expresses to PT that her co-pay is high and she is at her PLOF. 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 Environment Patient Lives With: Family Equipment Owned: Cane Intake Information: Prescription present Previous Treatment: (meclinzine) Falls Interview: Uses an assistive device;No positive findings with falls interview Falls Intervention: Instructed patient on safety and use of assistive device and awareness in regards to falls prevention.;More thorough falls assessment to be performed Red Flags Vertebral Fracture Red Flags: Female;Age >70 Vertebral Fracture Clinical Reasoning: Proceed with caution due to the above (1-2) risk factors Cancer Red Flags: Age >50 or <20 Cancer Clinical Reasoning: Proceed with caution Infection Clinical Reasoning: No identified risk factors. Cervical Arterial Dysfunction: Dizziness Cervical Arterial Dysfunction Clinical Reasoning: Proceed with caution Cervical Myelopathy: Age > 45 yo Cervical Myelopathy Diagnostic Rule: Proceed with caution Red Flags - Cervical Cancer Red Flags: Age >50 or <20 Cancer Clinical Reasoning: Proceed with caution Infection Clinical Reasoning: No identified risk factors. Cervical Arterial Dysfunction: Dizziness Cervical Arterial Dysfunction Clinical Reasoning: Proceed with caution Cervical Myelopathy: Age > 45 yo Cervical Myelopathy Diagnostic Rule: Proceed with caution Spine History Symptoms Since Onset: Improving Previous Episodes: Yes Concussion History of Concussion: No Vestibular Symptoms present for: weeks Symptom onset: sudden Dizziness: Yes Description: spinning (self);vertigo;dizziness Rating of current symptoms: 0/10 Frequency: Less than monthly Duration: seconds;may recur Symptoms worsened by: supine to sit;standing;turning head quickly;bending Symptoms improved by: sitting;being still;closing eyes Imbalance: Yes Imbalance triggered by: Bending;Position changes;Head movement Imbalance Comments: used straight cane since November, denies falls Fall Assessment: No falls Nausea: yes, not currently Motion Sickness: None Headache: No Neck Symptoms: No Jaw Symptoms: No Ear Symptoms: No Hearing Changes: No recent changes Tinnitus: No recent changes History of Syncope: No History of Migraine: No Denies: headaches;visual changes;paresthesia;neuropathy; focal weakness;tremors;neurological complaints Reports: dizziness Pain: Pain Pain Level: 0 Post Treatment Pain Post Treatment Symptoms: denies dizziness, unable to increase speed of VOR x1 exercise due to target becoming blurry per pt. report PROMIS Scales Higher is Better 07/06/2017 07/12/2017 03/18/2022 GH Physical - Score - - Incomplete GH Physical - Percentile 41 % 15 % - GH Mental - Score - - Incomplete GH Mental - Percentile 34 % 26 % - T-scores: mean of general population = 50. 5 points is clinically meaningfully difference Percentiles provide an indication of how the patient's score ranks in relation to the general population. Higher percentile rankings indicate better function/quality of life. 50th percentile is the average of the general population and indicates half of respondents had a worse score. T-scores: mean of general population = 50. 5 points is clinically meaningfully difference Percentiles provide an indication of how the patient's score ranks in relation to the general population. Higher percentile rankings indicate better function/quality of life. 50th percentile is the average of the general population and indicates half of respondents had a worse score. OBJECTIVE MEASURES WITH LEVEL OF FUNCTION: Vision Vision Deficits: Wears corrective lenses Corrective lenses: denies recent changes in vision Posture / Alignment Posture: Forward head;Increased thoracic kyphosis;Rounded shoulders Sitting Posture: Increased thoracic kyphosis Sensory Corrective lenses: denies recent changes in vision Oculomotor Testing Fixation Present Ocular ROM: WNL Spontaneous Nystagmus: No nystagmus Gaze Evoked Nystagmus: Not Present Smooth pursuit: Horizontal, Vertical and Diagonal all WNL Saccadic eye movements: Horizontal, vertical and oblique all WNL. Head Thrusts: Right positive VOR cancelation: Negative VOR to slow head movements: Negative Cross Cover: Negative Oculomotor Testing Fixation Removed Spontaneous Nystagmus: No nystagmus Gaze Evoked Nystagmus: Present Center Gaze : No nystagmus Right Gaze : No nystagmus (dizziness) Left Gaze : No nystagmus Up Gaze : No nystagmus Down Gaze : No nystagmus Head Shake: Negative Positional Testing Right Dc-Hallpike: No nystagmus;Symptomatic Left Dc-Hallpike: No nystagmus;Symptomatic Right Nylen Barany: Asymptomatic;No nystagmus Right Ear Down: Asymptomatic;No nystagmus Left Ear Down: Asymptomatic;No nystagmus Sensation - Cervical Spine Cervical Spine Sensation: Grossly Intact Cervical Spine ROM Cervical ROM : Limitation AROM Cervical Protrusion AROM: Normal Cervical Retraction AROM: Moderate limitation Cervical Flexion AROM: Normal Cervical Extension AROM: Minimal limitation Cervical Side-Bend Right AROM: Moderate limitation Cervical Side-Bend Left AROM: Moderate limitation Cervical Rotation Right AROM: Minimal limitation Cervical Rotation Left AROM: Minimal limitation Mobility Supine To Sit: Modified Independent;Comments Supine To Sit Comments: dizziness reported Sit to Supine: Modified Independent;Comments Sit To Supine Comments : denies dizziness without head rotation Gait Gait: Modified Independent Gait Distance (feet): 50 Gait Device: Cane Gait Deviations: General Deviations General Deviations/Observations: Wide base of support;Trunk Control Decreased;Step length decreased;Non-functional gait speed;Visual scanning/environmental awareness decreased Education: Education Learning Preferences: Demonstration;Explanation;Perfo rmance;Printed Materials Barriers: Acuity of Illness Learning/educational needs: Plan of Care;Safety;Home exercise program;Posture;Gait Training Education Provided: Yes, see treatment interventions for education provided Education Provided To: Patient Education Mode/Type: Demonstration;Explanation/Discu ssion;Literature/Printed Materials;Performance Response to Education/Teach Back: States/Identifies;Return Demonstration TREATMENT: PT Treatment Interventions: Self-Prison Management;Neuromuscular Re-Education Evaluation Neuromuscular Re-Education: 1: VORx1 seated plain back ground 1 min 2 sets twice daily with horrizontal head movements 2: VORx1 seated plain back ground 1 min 2 sets twice daily with vertical head movements Skilled Intervention: Skilled judgment used to assess appropriate program for balance and coordination activity. Education and demonstration for posture and positioning for tone management. Ensured patient safety with use of guarding patient and instructed pt. Hand placement on table with positional testing. Correct performance of home program was facilitated with verbal, visual, and tactile cueing. Patient education as noted. Self-Prison Management: 1: *postural education 2: *safety awareness and performing supine > sitting EOB movement slowly to prevent increased symptoms 3: *discussed the role of the VOR for gaze stability and possible vestibular hypofunction that may occur with age resulting in dizziness. Purpose of VOR exercises is to retrain through adaptation exercises and reduce symptoms with head movement. Skilled Intervention: Skilled judgment in the selection of proper modification for activity of daily living/home management based on clinical presentation, deficits, and needs. Physical assistance was provided during education for modifications and patient safety. Provided written instruction for activities of daily living techniques to facilitate proper performance and compliance. Reviewed patient specific diagnosis in relation to activities of daily living/home management. Activity progression based on professional judgement. Moderate verbal cues for maintaining neutral spine alignment. Reviewed and educated patient on additions/changes for home program as noted above with an (*). Correct performance of home program was facilitated with verbal, visual, and tactile cueing. Billing * Evaluation Low Complexity: 1 Unit Neuromuscular Re-Education Treatment Minutes: 15 Self-Care/Home Management Treatment Minutes: 10 Total Treatment Time Minutes (timed/untimed): 45 Fadumo Obrien PT documented in this encounter [facility] 08-29-2022 History of Presen t illness Narrative HISTORY AND PHYSICAL Liomarychuy Rodriguez 1945 REFERRING PHYSICIAN: Lien Jiang APRN.HAZARDOUS [employer]ANCES SCIENTIST CHIEF COMPLAINT: Consult HPI: The patient is a 76 year old female referred for endoscopy. Tamera notes that she was told that she had colon polyps in her last colonoscopy in 2019. Pathology revealed - 1. Colon, cecal polyp, biopsy (A) - Sessile serrated polyp. 2. Colon, distal transverse polyp, biopsy (B) - Sessile serrated polyp. The patient states that overall she feels well. The patient denies blood in stools, denies abdominal pain, and denies changes in bowel habits. The patient notes no colon cancer in immediate family. PAST MEDICAL HISTORY Diagnosis Date Acute pharyngitis Allergic rhinitis 08/19/2009 Benign neoplasm of colon Carpal tunnel syndrome Degeneration of intervertebral disc, site unspecified HYPERTENSION NOS 12/06/2005 HYPOTHYROIDISM NOS 12/06/2005 not needing thyroid replacement s/p thyroidectomy Labyrinthitis, unspecified Obesity S/P thyroidectomy PAST SURGICAL HISTORY Procedure Laterality Date CHOLECYSTECTOMY HX 70s COLONOSCOPY FLX DX W/COLLJ SPEC WHEN PFRMD 01/28/2013 Colonoscopy COLONOSCOPY FLX DX W/COLLJ SPEC WHEN PFRMD 09/26/2016 Colonoscopy COLONOSCOPY FLX DX W/COLLJ SPEC WHEN PFRMD 08/29/2019 Colonoscopy COLONOSCOPY W/BIOPSY SINGLE/MULTIPLE 01/04/10 FNA WITH IMAGING Left 12/09/15 U/S FNA left thyroid PAST SURGICAL HISTORY OF 89 thyroidectomy for benign reasons TOTAL ABDOMINAL HYSTERECT W/WO RMVL TUBE OVARY 87 Dr. Rodriguez Current Outpatient Medications Medication Sig peg 3350-Electrolytes (GOLYTELY) 236-22.74-6.74 -5.86 gram suspension Take 4,000 mL by mouth one time only for 1 dose. Refer to printed prep instructions from your provider. meclizine (ANTIVERT) 25 mg tab Take 1 tablet by mouth every 6 hours as needed. FOR DIZZINESS ondansetron orally disintegrating (ZOFRAN ODT) 4 mg disintegrating tablet Take 1 tablet by mouth every 6 hours as needed for nausea/vomiting. Benzonatate 200 mg capsule Take 1 capsule by mouth three times daily as needed. metoprolol tartrate, short acting, (LOPRESSOR) 25 mg tablet Take 2 tablets by mouth every morning AND 1 tablet every evening. loratadine (CLARITIN) 10 mg tablet Take 1 tablet by mouth once daily. traMADol (ULTRAM) 50 mg tablet Take 1 tablet by mouth every 6 hours as needed for pain for up to 180 days. triamterene-hydroCHLOROthiazide (DYAZIDE) 37.5-25 mg per capsule Take 1-2 capsules by mouth once daily. As directed latanoprostene bunod (VYZULTA) 0.024 % 1 Drop daily at bedtime. sodium chloride-aloe vera (AYR SALINE GEL) nasal spray Use 1 mL in the nose four times daily as needed (for nasal congestion and drainage). amLODIPine (NORVASC) 10 mg tablet Take 1 tablet by mouth once daily. albuterol HFA (VENTOLIN HFA) 90 mcg/actuation inhaler Inhale 2 Puffs as instructed every 4 hours as needed for Wheezing/Shortness of Breath. hydrocortisone 2.5 % cream Apply 1 application to affected area twice daily. Location: bilateral upper extremities and upper back Compression Knee Highs KNEE HIGH COMPRESSION STOCKINGS 8-15 MMHg. DX: EDEMA acetaminophen(TYLENOL EXTRA STRENGTH 500 MG TAB) Take two(2) tablets every six(6) hours as needed for pain. ALLERGIES: Lisinopril, Etodolac, Flonase [Fluticasone Propionate], and Penicillins PERSONAL HISTORY: Social History Tobacco Use Smoking status: Every Day Packs/day: 0.30 Types: Cigarettes Start date: 11/27/1985 Smokeless tobacco: Never Tobacco comments: Working on quitting. Down to less than half PPD Substance Use Topics Alcohol use: No Drug use: No FAMILY HISTORY Problem Relation Age of Onset Colon Cancer Father Hypertension Mother Diabetes Mother Breast Cancer Paternal Grandmother REVIEW OF SYMPTOMS: The review of systems data was entered by the nurse and reviewed by me There are no exam notes on file for this visit. PHYSICAL EXAMINATION: General: The patient is 76 year old female, well nourished, well hydrated in no acute distress. The patient is oriented to time, place, and person. VITALS: Blood pressure 163/83, pulse 69, temperature 36.4 C (97.6 F), temperature source Temporal, resp. rate 22, weight 109.5 kg (241 lb 6.4 oz), SpO2 100 %. Body mass index is 39.44 kg/m . Head: Normal cephalic, atraumatic Eyes: pupils are equally round, sclera are clear/anicteric, wearing glasses Neck is supple with no tracheal deviation Respiratory: Normal respiratory excursion and pattern. Abdominal exam: soft obese and benign Extremities: no clubbing, cyanosis or edema. Neuro: non focal Psych: normal mood Assessment IMPRESSION: history of colon polyps PLAN: I have discussed the above with the patient. I have offered colonoscopy , possible biopsies I have explained the procedure to the patient. I have counseled the patient as to the risks of the procedure, including but not limited to: infection, bleeding, injury to any intrabdominal organs such as liver/spleen, perforation of the GI tract, inability to complete the procedure, complications of anesthesia, etc. - the patient understands. The patient was offered a surgery/procedure at a [facility] facility. The provider and patient have discussed in detail the risk of exposure to and/or potential harm posed by the COVID-19 virus with having a surgery/procedure at this time versus the risk of delaying the surgery/procedure. It is not possible to know either the risk of delaying the surgery or procedure or chance of getting an infection with perfect accuracy, but a joint decision was made between the patient and the provider to proceed at this time with the scheduled surgery/procedure. I have explained to the patient the difference between IV conscious sedation and MAC anesthesia - and I have offered either, according to the patient's wishes. I have explained that with IV conscious sedation there is no anesthesia provider available and therefore there is a limitation of the amount of IV medications that can be given and that the patient may wake up in the middle of the procedure and/or experience pain/discomfort during the procedure. Further discussion was done and the patient was given the opportunity to ask questions and all questions were answered. The patient chooses IV conscious sedation Patient was counseled that if there are changes in his/her medical condition, to let the office know if surgery should proceed. If there are changes in patient's medical condition from time of this encounter to the day of the procedure that preclude anesthesia, patient may have procedure cancelled for patient's safety. The patient wishes to proceed. I have reviewed the colon cleansing preparation with her and told patient that she may take her morning medications with sips of water on day of procedure. I have answered all questions to the patient s satisfaction and the patient has no further questions. Diagnoses: (Z12.11) Screening for colon cancer I have confirmed and edited as necessary, the PFSH and ROS obtained by others. Consultation requested by Lien Jiang for an opinion regarding for patient's history of colon polyps. My final recommendations will be communicated back to the requesting physician by way of shared Medical record or letter to requesting physician via US mail. Return to Clinic: The patient will be schedule for procedure at [facility] on 09/26/2022 Medical Decision Making: Risk: Low: Low risk from testing/treatment Medical Decision Making Level: 2 - Straightforward Susi Jackson MD documented in this encounter [facility] 08-29-2022 Instructions Susi Jackson MD - 08/29/2022 3:14 PM EDT Images from the original note were not included. Bowel Preparation Instructions for: Golytely, Nulytely, Trilyte or Colyte (polyethylene glycol 3350 and electrolytes) IF YOU DO NOT FOLLOW THESE DIRECTIONS, YOUR COLONOSCOPY WILL BE CANCELLED. Walker Instructions: Your bowel must be empty so that your doctor can clearly view your colon. Follow all of the instructions in this handout EXACTLY as they are written. Do NOT eat any solid food the ENTIRE day before your colonoscopy. Drink only clear liquids. Buy your bowel preparation at least 5 days before your colonoscopy. TRANSPORTATION on the Day of Your Exam A responsible person MUST be present with you at Check In prior to your colonoscopy and REMAIN in the endoscopy area until you are discharged. You are NOT ALLOWED to drive, take a taxi or bus, or leave the Endoscopy Center ALONE. If you do not have a responsible parts delivery driver (family member or friend) with you to take you home, your exam cannot be done with sedation and will be cancelled. Please bring a list of all of your current medications, including any Over-the Counter medications with you. Medications If you take insulin, diabetic medications or blood thinners such as Coumadin (warfarin), Plavix (clopidogrel), Ticlid (ticlopidine hydrochloride), Agrylin (anagrelide), Xarelto (Rivaroxaban), Pradaxa (Dabigatran), Eliquis (Apixaban), and Effient (Prasugrel). You MUST call the doctors who orders those medicines for instructions on altering the dosage before your colonoscopy. All other medications should be taken the day of the exam with a sip of water including ASPIRIN. Five (5) Days Before Your Colonoscopy Do NOT take medicines that stop diarrhea - such as Imodium, Kaopectate, or Pepto Bismol. Do NOT take fiber supplements - such as Metamucil, Citrucel, or Perdiem. Do NOT take products that contain iron - such as multi-vitamins (the label lists what is in the products). Do NOT take Vitamin E. Buy the prescription bowel preparation solution at your local pharmacy or drugstore pharmacy. 10/2019 Bowel Preparation Instructions for: Golytely, Nulytely, Trilyte or Colyte (polyethylene glycol 3350 and electrolytes) Three (3) Days Before Your Colonoscopy Do NOT eat high-fiber foods - such as popcorn, beans, seeds (flax, sunflower, quinoa), multigrain bread, nuts, salad/vegetables, or fresh and dried fruit. One (1) Day Before Your Colonoscopy Only drink clear liquids the ENTIRE DAY before your colonoscopy. Do NOT eat any solid foods. Drink at least 8 ounces of clear liquids every hour after waking up. The clear liquids you can drink include: Clear Liquid (NO RED LIQUIDS) DO NOT DRINK Gatorade, Pedialyte or Powerade Clear broth or bouillon Coffee or tea (no milk or non-dairy creamer) Carbonated and non-carbonated soft drinks Nazario-Aid or other fruit flavored drinks Strained fruit juices (no pulp) Jell-O, popsicles, hard candy Water Alcohol Milk or non-dairy creamers Noodles or vegetables in soup Juice with pulp Liquid you cannot see through Do not use tobacco/vaping products The bowel preparation solution will be consumed in two parts. Mix the solution the evening before your colonoscopy and refrigerate before drinking. You may add the flavor pack that came with the bowel preparation. Do NOT add ice, sugar or any other flavorings to the solution. Part 1 At 6:00 PM - Evening before your colonoscopy Drink an 8-oz glass of bowel preparation every 10 minutes for a total of 8 glasses. You may continue to drink clear liquids until midnight. Part 2 On the day of your colonoscopy you may drink clear liquids up to (three) 3 hours before your procedure. 4 1/2 hours before your colonoscopy Drink an 8-oz glass of bowel preparation every 10 minutes for a total of 8 glasses. Fifteen (15) minutes later, drink an 8-oz glass of clear liquids every 15 minutes for a total of 2 glasses. You may continue to drink clear liquids up to (three) 3 hours before your exam. 2 10/2019 documented in this encounter [facility] 03-18-2022 History of Presen t illness Narrative VIRTUAL VISIT PROGRESS NOTE This is a virtual visit using [employer] video visit. It required patient-provider interaction for the medical decision making as documented below. Tamera Rodriguez is a 76 year old female seen for 6 month follow up. Reviewed that was treated with Zpak but not still lingering. Would like to extend course. Also tessalon perles helping so need another RX. CXR was negative for pneumonia. Seems like when weather changes gets ill. Needs parking placard Blood pressure controlled without adverse effects from medications. Has wrist BP cuff. BPs 130s over 80s. Also requested med for vertigo. Ran out of refills for meclizine. HISTORY REVIEWED (electronic chart updated): PAST MEDICAL HISTORY Diagnosis Date Acute pharyngitis Allergic rhinitis 08/19/2009 Benign neoplasm of colon Carpal tunnel syndrome Degeneration of intervertebral disc, site unspecified HYPERTENSION NOS 12/06/2005 HYPOTHYROIDISM NOS 12/06/2005 not needing thyroid replacement s/p thyroidectomy Labyrinthitis, unspecified Obesity S/P thyroidectomy PAST SURGICAL HISTORY Procedure Laterality Date CHOLECYSTECTOMY HX 70s COLONOSCOPY FLX DX W/COLLJ SPEC WHEN PFRMD 01/28/2013 Colonoscopy COLONOSCOPY FLX DX W/COLLJ SPEC WHEN PFRMD 09/26/2016 Colonoscopy COLONOSCOPY FLX DX W/COLLJ SPEC WHEN PFRMD 08/29/2019 Colonoscopy COLONOSCOPY W/BIOPSY SINGLE/MULTIPLE 01/04/10 FNA WITH IMAGING Left 12/09/15 U/S FNA left thyroid PAST SURGICAL HISTORY OF 89 thyroidectomy for benign reasons TOTAL ABDOMINAL HYSTERECT W/WO RMVL TUBE OVARY 87 Dr. Rodriguez FAMILY HISTORY Problem Relation Age of Onset Colon Cancer Father Hypertension Mother Diabetes Mother Breast Cancer Paternal Grandmother Social History Tobacco Use Smoking status: Current Every Day Smoker Packs/day: 0.30 Types: Cigarettes Start date: 11/27/1985 Smokeless tobacco: Never Used Tobacco comment: Working on quitting. Down to less than half PPD Substance Use Topics Alcohol use: No Drug use: No Current Outpatient Medications Medication Sig Benzonatate 200 mg capsule Take 1 capsule by mouth three times daily as needed. traMADol (ULTRAM) 50 mg tablet Take 1 tablet by mouth every 6 hours as needed for pain for up to 180 days. triamterene-hydroCHLOROthiazide (DYAZIDE) 37.5-25 mg per capsule Take 1-2 capsules by mouth once daily. As directed latanoprostene bunod (VYZULTA) 0.024 % 1 Drop daily at bedtime. sodium chloride-aloe vera (AYR SALINE GEL) nasal spray Use 1 mL in the nose four times daily as needed (for nasal congestion and drainage). amLODIPine (NORVASC) 10 mg tablet Take 1 tablet by mouth once daily. loratadine (CLARITIN) 10 mg tablet Take 1 tablet by mouth once daily. meclizine (ANTIVERT) 12.5 mg tab Take 1 tablet by mouth every 6 hours as needed. FOR DIZZINESS metoprolol tartrate, short acting,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 [address] [place] [address] PCP - General 08/19/09 Tire Cord Weaver Relationship Specialty Start Date End Date Hailey Birch MD [address] [place] [address] PCP - General 08/19/09 Tire Cord Weaver Relationship Specialty Start Date End Date Hailey Birch MD [address] [place] [address] PCP - General 08/19/09 Tire Cord Weaver Relationship Specialty Start Date End Date Hailey Birch MD [address] [place] [address] PCP - General 08/19/09 Tire Cord Weaver Relationship Specialty Start Date End Date Hailey Birch MD [address] [place], [place] [id number] PCP - General 08/19/09 FOR RECORDS PERTAINING TO PATIENTS WHO ARE OR HAVE BEEN ENROLLED IN A CHEMICAL DEPENDENCY/SUBSTANCEABUSE PROGRAM, SOME INFORMATION MAY BE OMITTED. This clinical summary was aggregated from multiple sources. Caution should be exercised in using it in the provision of clinical care. This summary normalizes information from multiple sources, and as a consequence, information in this document may materially change the coding, format and clinical context of patient data. In addition, data may be omitted in some cases. CLINICAL DECISIONS SHOULD BE BASED ON THE PRIMARY CLINICAL RECORDS. [facility] [employer] [facility]. provides no warranty or guarantee of the accuracy or completeness of information in this document.
[2024-01-23 03:55] VITALS: BP 164/81; PULSE 65; RESP 18; TEMP 36.6; O2SAT 92
--- NOTE | 2024-01-23 05:55 | EKG12_ITS ---
Test Reason : CP ADMIT Blood Pressure : / mmHG Vent. Rate : 063 BPM Atrial Rate : 063 BPM P-R Int : 202 ms QRS Dur : 094 ms QT Int : 442 ms P-R-T Axes : 068 004 132 degrees QTc Int : 452 ms Sinus rhythm with Premature atrial complexes Left ventricular hypertrophy with repolarization abnormality ( R in aVL , Fercho product ) Abnormal ECG When compared with ECG of 22-JAN-2024 17:47, MANUAL COMPARISON REQUIRED, DATA IS UNCONFIRMED Confirmed by YOLA AKBAR, FAITH ([id number]), brands editor ROSARIO PEÑA ([id number]) on 01/29/2024 2:11:07 PM Referred By: OLIVERA Confirmed By:JOSE ACEVES MD
[2024-01-23] MEDS: Aspirin E.C. 325 MG Tablet PO (06:36)
[2024-01-23 08:35] LABS: Cholesterol 151 mg/dL (200); High Density Lipoprotein 55 mg/dL; Triglycerides 74 mg/dL; Very Low Density Lipoprotein 15 mg/dL (5-40)
[2024-01-23 09:55] VITALS: BP 133/58; PULSE 64; RESP 16; TEMP 36.9; O2SAT 92
[2024-01-23] MEDS: amLODIPine 10 MG Tablet PO (11:09)
[2024-01-23] MEDS: Loratadine 10 MG Tablet PO (11:09)
[2024-01-23] MEDS: Triamterene 37.5MG/Hctz 25MG Capsule 1 CAP PO (11:09)
--- NOTE | 2024-01-23 14:12 | STRESSREP_ITS ---
Stress Test Report Date: 01/23/2024 Procedure: Pharmacologic stress nuclear imaging study Indications: Chest pain Consent: Per the patient Procedure: The patient underwent pharmacologic (Regadenoson) evaluation with a peak heart rate of [67] beats per minute (57%predicted maximal heart rate) and a peak blood pressure of 154/82 mmHg. The baseline ECG demonstrated normal sinus rhythm, nonspecific ST-T changes. EKG during lexiscan infusion revealed no significant ischemic changes. EKG post infusion revealed no significant ischemic changes [There were no cardiac dysrhythmias pretest, during pharmacologic infusion, or recovery]. [There was no complaint of chest discomfort during pharmacologic infusion or recovery]. The examination was discontinued secondary to completion of protocol. Impression: 1. Lexiscan stress test test is negative for Lexiscan infusion induced EKG changes of ischemia. 2. Lexiscan stress test test is negative for Lexiscan infusion induced chest pain. 3. Results of the nuclear portion of the test is as below Myocardial perfusion imaging study: Technique: The patient was injected with 14.8 millicuries of technetium 99m Cardiolite and subsequently rest SPECT Cardiolite nuclear imaging was obtained in the horizontal long, vertical long, and short axis views. The patient underwent pharmacologic [Regadenoson 0.4mg] evaluation. Please see above for details. The patient was injected with 46 millicuries of technetium 99m Cardiolite and subsequently stress SPECT Cardiolite nuclear imaging was obtained in the horizontal long, vertical long, and short axis views. A gated Cardiolite study at peak stress was obtained. Interpretation: Rest and stress SPECT Cardiolite nuclear imaging status post realignment, normalization, and attenuation correction demonstrate no evidence of significant ischemia or infarction. Gated images reveal no significant regional wall motion abnormalities. The reported LVEF is 68%. Impression: 1. There is no evidence of significant ischemia or infarction. 2. Estimated ejection fraction is 68%. This note was generated with Locatelyation software. It may contain incorrect words, spelling, and punctuation that were not noted in checking the note before signing.
[2024-01-23 15:02] VITALS: BP 122/67; PULSE 89; RESP 16; TEMP 36.6; O2SAT 100
--- NOTE | 2024-01-23 15:03 | PCM.DC.SUM ---
Providers Date of Admission: 01/22/24 Date of Discharge: 01/23/24 Primary Care Physician: Dr. Elise Birch MD Reason For Visit: CHEST PRESSURE AND UNCONTROLLED HYPERTENSION Diagnosis Discharge Diagnosis (1) Chest pain, exertional: Status: Acute Code(s): R07.9 - Chest pain, unspecified (2) Abnormal EKG: Status: Acute Code(s): R94.31 - Abnormal electrocardiogram [ECG] [EKG] (3) Uncontrolled hypertension: Status: Acute Code(s): I10 - Essential (primary) hypertension Medications at Discharge Home Medications albuterol sulfate 90 mcg/actuation aerosol inhaler (Ventolin HFA) 1 puff inhalation PRN PRN Sob &/Or Wheezing 06/22/17 amlodipine 10 mg tablet (Norvasc) 10 mg PO DAILY 06/22/17 loratadine 10 mg tablet (Allergy Relief (loratadine)) 10 mg PO DAILY 06/22/17 meclizine 12.5 mg tablet 12.5 mg PO Q6H PRN antivert 06/22/17 metoprolol tartrate 25 mg tablet 25 mg PO BID 06/22/17 tramadol 50 mg tablet 50 mg PO Q6H 01/22/24 triamterene 37.5 mg-hydrochlorothiazide 25 mg capsule 1 cap PO DAILY 01/22/24 Hospital Course Operations None Procedures Stress test Summary of Care Provided Minutes Spent on Discharge: 55 Hospital Course: Patient is a 78-year-old female with a past medical history as outlined was admitted through the ED on 01/23/2024 with a complaint of chest tightness, palpitations and shortness of breath. His symptoms started in the afternoon of the day of admission when she moves her oxygen tanks to get them ready for pickup. Subsequently started having the chest tightness and her heart was pounding. His symptoms subsequently resolved by the time she go to the ED and a chest pain which was producible with palpation. In the ED, troponins were negative and EKG showed no acute ST changes. BP was 178/78. She was admitted and managed for chest pain to rule out ACS. She had a stress test done on 01/23/2024 which showed no evidence of ischemia. She had 2D echo done as well and read was pending at time of discharge. Patient's blood pressure had improved and was down to 133/58 at time of discharge. Her medications were therefore not adjusted and she is to keep a blood pressure log at home and follow-up with her primary care doctor within 1 to 2 weeks for adjustment of BP meds as needed. Patient seen and examined prior to discharge. She felt well and had no complaints. She had an uneventful night. Review of symptoms otherwise negative. Labs and vitals reviewed. Home medication reviewed and reconciled. Physical Exam Const alert, oriented x3 and no apparent distress General Appearance: cooperative and comfortable HEENT normocephalic, head/scalp atraumatic, hearing grossly normal bilaterally and moist oral mucous membranes Mouth: oral and palatal mucosa normal Eyes PERRL and EOMs intact bilaterally Neck no lymphadenopathy and supple Resp normal respiratory effort, no retractions, no use of accessory muscles and clear to auscultation bilaterally Cardio regular rate and regular rhythm GI normal to inspection, nondistended, normoactive bowel sounds, soft to palpation, non-tender and non-distended Extremity normal to inspection, full ROM and no clubbing, cyanosis or edema Neuro oriented x3, CN's II-XII intact bilaterally, moves all extremities and no focal motor deficits Sensorium / Orientation: awake, alert, oriented to person, oriented to place and oriented to time Speech: speech normal Motor Exam: strength 5/5 throughout Psych affect normal Weight / BMI Weight Weight: 234 lb 5.622 oz Body Mass Index (BMI) 33.6 ABG / Lab / Microbiology Data 01/22/24 17:40 01/22/24 17:40 Laboratory: Laboratory Results - last 24 hr 01/22/24 17:40: WBC 7.4, RBC 4.59, Hgb 14.1, Hct 43.4, MCV 94.6, MCH 30.7, MCHC 32.5, RDW Std Deviation 43.6, RDW Coeff of Migd[place] 12.6, Plt Count 327, MPV 8.8, Immature Gran % (Auto) 0.300, Neut % (Auto) 55.6, Lymph % (Auto) 28.5, [place] % (Auto) 10.8 H, Eos % (Auto) 4.0, Baso % (Auto) 0.8, Absolute Neuts (auto) 4.1, Absolute Lymphs (auto) 2.12, Nucleated RBC % 0, Sodium 142, Potassium 3.6, Chloride 111 H, Carbon Dioxide 30.0, Anion Gap 1 L, BUN 15, Creatinine 0.83, Est GFR (MDRD) Af Amer 85, Est GFR (MDRD) Non-Af 71, BUN/Creatinine Ratio 18.0, Glucose 113 H, Calcium 9.5, Troponin I High Sens 28 01/22/24 19:44: Troponin I High Sens 39 01/22/24 23:31: Troponin I High Sens 34 01/23/24 07:05: Triglycerides 74, Cholesterol 151, LDL Cholesterol 81, VLDL Cholesterol 15, HDL Cholesterol 55 Radiography Diagnostic Testing: Radiology Impression Chest X-Ray 01/22/24 18:12 IMPRESSION: Interstitial prominence. Electronically Signed: Wally Larkin DO at 19:40 EST Reading Location ID and State: [facility] / [place] Tel [phone], Service support , D/C Instructions Discharge Diet: Low fat / Low cholesterol Discharge Activity: Return to Normal Activity Weight Bearing Status: Weight bearing as tolerated Call your doctor if you observe: Fever of 101 or Higher, Shortness of breath, Dizziness, Swelling in the ankles and Chest pain Meaningful Use Info Meaningful Use Diagnoses (Choose all that apply): None applicable Discharge Plan Admission Admit Date/Time: 01/22/24 20:54 Primary Reason for Your Visit: chest pain Attending Provider: Rhina Love Primary Care Provider: Elise Birch Consulting Providers: Sebastian Drummond Instructions Patient Instructions: ED Chest Pain, Noncardiac Discharge Orders/Prescriptions Prescriptions: Continued meclizine 12.5 MG tablet 12.5 mg PO Q6H PRN (Reason: antivert) Patient Comments: antivert amlodipine [Norvasc] 10 MG tablet 10 mg PO DAILY Patient Comments: blood pressure metoprolol tartrate 25 MG tablet 25 mg PO BID Patient Comments: take two in the morning and one at night loratadine [Allergy Relief (loratadine)] 10 MG tablet 10 mg PO DAILY Patient Comments: allergies albuterol sulfate [Ventolin HFA] 1 INHALER inhaler 1 puff inhalation PRN PRN (Reason: Sob &/Or Wheezing) Patient Comments: inhaler triamterene-hydrochlorothiazid 37.5-25 mg capsule 1 cap PO DAILY Patient Comments: Take 1-2 capsules by mouth once daily. As directed tramadol 50 mg tablet 50 mg PO Q6H Patient Comments: Take 1 tablet by mouth every 6 hours as needed for pain Referrals / Follow Up: Elise Birch MD [Primary Care Provider] - Within 2 Weeks Disposition Disposition (needs filled in before D/C Order can be placed): Home, Self Care Charges/Coding Visit Charges Inpatient E&M: 50545 Disch Hosp >30min
--- NOTE | 2024-01-23 15:17 | PHA.DC.MR.R ---
Pharmacy [place] Med Reconciliation Pharmacy Service has performed discharge medication reconciliation for this patient. The patient's discharge medication list was reviewed for discrepancies and discrepancies were resolved. Medications at Discharge Home Medications albuterol sulfate 90 mcg/actuation aerosol inhaler (Ventolin HFA) 1 puff inhalation PRN PRN Sob &/Or Wheezing 06/22/17 amlodipine 10 mg tablet (Norvasc) 10 mg PO DAILY blood pressure 06/22/17 loratadine 10 mg tablet (Allergy Relief (loratadine)) 10 mg PO DAILY allergies 06/22/17 meclizine 12.5 mg tablet 12.5 mg PO Q6H PRN antivert 06/22/17 metoprolol tartrate 25 mg tablet 25 mg PO BID blood pressure 06/22/17 tramadol 50 mg tablet 50 mg PO Q6H pain 01/22/24 triamterene 37.5 mg-hydrochlorothiazide 25 mg capsule 1 cap PO DAILY blood pressure 01/22/24
--- NOTE | 2024-01-23 15:32 | NURSING ---
PIV removed. discharge paperwork given and reviewed with pt.
== END 2024-01-23 15:02 | disposition home or self-care (01) ==
LOC: ED 20:33 → PCU 21:02
PROVIDERS: Physician Assistant; Admitting Provider Internal Medicine; Emergency Provider Emergency Medicine; PCP Internal Medicine; Visit Provider Student in an Organized Health Care Education/Training Program
DX: R07.89 Other chest pain (principal); R00.2 Palpitations; F17.210 Nicotine dependence, cigarettes, uncomplicated; I10 Essential (primary) hypertension; R06.02 Shortness of breath; E03.9 Hypothyroidism, unspecified; Z99.81 Dependence on supplemental oxygen; Z79.899 Other long term (current) drug therapy; E66.9 Obesity, unspecified; Z68.33 Body mass index [BMI] 33.0-33.9, adult; R94.31 Abnormal electrocardiogram [ECG] [EKG]
CPT/HCPCS: 36415; 71045; 78452; 80048; 80061; 84484; 85025; 93005; 93017; 93306; 94760; 99221; 99284; A9500; A4216; G0378; J2785